=== PATIENT | female | born 1945 | race Caucasian/White ===

== ENCOUNTER → 2016-11-17 | Outpatient (CLI) | payer MEDICARE ==
[~2016-11-17] MED LIST: ASPEC81 PO; BNC20 PO; CALC500C70 PO; CHOL100010 PO; CNT PO; CYAN100T PO; OCCUVITE PO; PRM/45 PO; SIMV20TA2 PO; TRETINOIN 0.025% TOP; krill oil PO
[2016-11-17 10:30] LABS: ESTIMATED AVERAGE GLUCOSE 126 mg/dl; HA1C FLAG Normal (Normal)
[2016-11-17 12:50] LABS: CALCIUM 9.1 mg/dl (8.5-10.1)
[2016-11-17 12:51] LABS: ALT/SGPT 24 U/L (12-78); BLOOD UREA NITROGEN 15 mg/dl (7-18); BUN/CREATININE RATIO 17.1 (10-20); CARBON DIOXIDE 27 mmol/L (21-32); CHLORIDE 106 mmol/L (98-107); CREATININE 0.87 mg/dl (0.60-1.20); GLUCOSE 104 mg/dl (70-99); SODIUM 142 mmol/L (136-145)
[2016-11-17 12:54] LABS: ALKALINE PHOSPHATASE 70 U/L (45-117); AST/SGOT 24 U/L (15-37)
--- NOTE | 2016-11-21 11:48 | CODING QUERY MEDICAL NECESSITY ---
SUPPORTING DIAGNOSIS NEEDED A supporting diagnosis is required for the test/procedure performed on this patient in order for us to be reimbursed by the patient's insurance. Please provide a supporting diagnosis for the following test/procedure listed below next to the test name along with your signature. *If there is no additional diagnosis for this patient that would support the following test/procedure please document that below next to the test/procedure. Test(s)/Procedure(s) that require a supporting diagnosis: * HEMOGLOBIN A1C DIAGNOSIS: Provider Signature: Date: Thank you Diane [facility] Information Management Once completed, please kindly fax back to [phone] For questions please call [phone]
== END | disposition home or self-care (01) ==
LOC: C.LAB1850 08:49
PROVIDERS: ATTEND Family Medicine
DX: I10 Essential (primary) hypertension (principal); R73.03 Prediabetes

== ENCOUNTER → 2017-01-01 | Outpatient (CLI) | payer MEDICARE | END | disposition home or self-care (01) | LOC: C.LABSPEC 08:45 | PROVIDERS: ATTEND Obstetrics & Gynecology | DX: N89.8 Other specified noninflammatory disorders of vagina (principal) ==

== ENCOUNTER → 2017-03-14 | Outpatient (CLI) | payer MEDICARE ==
--- NOTE | 2017-03-14 13:41 | MAMMOGRAPHY REPORT ---
BILATERAL DIGITAL SCREENING MAMMOGRAM TOMOSYNTHESIS WITH CAD: 03/14/2017 CLINICAL HISTORY: Routine screening. TECHNIQUE: Breast tomosynthesis in addition to standard 2D mammography was performed. Current study was also evaluated with a Computer Aided Detection (CAD) system. COMPARISON: Comparison is made to exams dated: 03/13/2016 mammogram, 03/10/2015 mammogram, 01/14/2014 mammogram, 12/19/2012 mammogram, 12/19/2011 mammogram, and 12/15/2010 mammogram - [facility]. BREAST COMPOSITION: The tissue of both breasts is heterogeneously dense, which may obscure small mas ses. FINDINGS: No suspicious masses, calcifications, or areas of architectural distortion are noted in ei ther breast. There has been no significant interval change compared to prior exams. Scattered bilater al benign-appearing calcifications are not significantly changed. A biopsy marker clip is again note d in the left upper outer quadrant. IMPRESSION: ACR BI-RADS CATEGORY 2: BENIGN There is no mammographic evidence of malignancy. A 1 year screening mammogram is recommended. The pa tient will receive written notification of the results. Approximately 10% of breast cancers are not detected with mammography. A negative mammographic report should not delay biopsy if a clinically suggestive mass is present. Karina Hendricks M.D. ah/:03/14/2017 12:05:30 Corking Machine Operator: Linda ROSARIO)(M), [facility] letter sent: Normal 1/2 BI-RADS Code: ACR BI-RADS Category 2: Benign
== END | disposition home or self-care (01) ==
LOC: C.MAMM 11:04
PROVIDERS: ATTEND Obstetrics & Gynecology
DX: Z12.31 Encounter for screening mammogram for malignant neoplasm of breast (principal)

== ENCOUNTER → 2017-05-21 | Outpatient (CLI) | payer MEDICARE ==
[2017-05-21 10:01] LABS: ALB/GLOB RATIO 1.1 (0.9-2); ALKALINE PHOSPHATASE 74 U/L (45-117); ALT/SGPT 18 U/L (12-78); AST/SGOT 23 U/L (15-37); BLOOD UREA NITROGEN 19 mg/dl (7-18); BUN/CREATININE RATIO 28.9 (10-20); CALCIUM 9.1 mg/dl (8.5-10.1); CARBON DIOXIDE 26 mmol/L (21-32); CHLORIDE 104 mmol/L (98-107); CREATININE 0.67 mg/dl (0.60-1.20); GLUCOSE 101 mg/dl (70-99); POTASSIUM 4.1 mmol/L (3.5-5.1); SODIUM 137 mmol/L (136-145)
[2017-05-21 10:30] LABS: ESTIMATED AVERAGE GLUCOSE 120 mg/dl; HA1C FLAG Normal (Normal)
== END | disposition home or self-care (01) ==
LOC: C.LAB1850 08:29
PROVIDERS: ATTEND Physician Assistant Medical
DX: Z00.00 Encounter for general adult medical examination without abnormal findings (principal); E78.5 Hyperlipidemia, unspecified; R73.03 Prediabetes

== ENCOUNTER → 2017-06-18 | Outpatient (CLI) | payer MEDICARE | END | disposition home or self-care (01) | LOC: C.MAMM 12:59 | PROVIDERS: ATTEND Physician Assistant Medical | DX: M85.80 Other specified disorders of bone density and structure, unspecified site (principal); M85.839 Other specified disorders of bone density and structure, unspecified forearm ==

== ENCOUNTER 2019-11-09 15:53 | Inpatient (IN) ==
[2019-11-09] MEDS ORDERED: SODIUM CHLORIDE 0.9% 1000ML 1,000 ML IV ONE (16:10)
--- NOTE | 2019-11-09 16:12 | Emergency Department Note ---
Impression & Plan Syncope, Lyme disease, Fever ED Provider Note NAME: KEI KHAN AGE: 74 SEX: F : 1945 ARRIVES VIA: Walk-In INFORMANT: Patient, nurse ED PROVIDER(S): Andrew Panda DO CHIEF COMPLAINT: Syncope and fever HPI: Patient is a 74-year-old female who presents the ER following a tick bite which occurred this past Sunday. She pulled a small tick off her left breast. The past 48 hours she has been having fevers as high as 102. She is been taking aspirin for this. She admits to myalgias and arthralgias. She has a cough which she notes is not really productive. She also has a little bit of a sore throat and runny nose. She denies any sick contacts. No exposure to anyone with coronavirus. No chest pain belly pain or vomiting. She admits to some nausea. She does not remember passing out here in the ER. ROS: See above HPI for pertinent positives & negatives. A total of 10 systems reviewed and were otherwise negative. PAST MEDICAL HISTORY:See Below PAST SURGICAL HISTORY:See Below FAMILY HISTORY:See Below SOCIAL HISTORY:See Below HOME MEDICATIONS:See Below ALLERGIES:See Below VITALS:See Below PHYSICAL EXAMINATION: GENERAL: Sitting up in bed, alert, well appearing, well nourished, no distress, non-toxic EYE EXAM: normal conjunctiva. PERRL and EOM's grossly intact. OROPHARYNX: no exudate, no erythema, lips, buccal mucosa, and tongue normal and mucous membranes are moist NECK: supple, no nuchal rigidity, no adenopathy, non-tender LUNGS: Clear to auscultation. Normal chest wall mechanics HEART: no murmurs, S1 normal and S2 normal ABDOMEN: abdomen soft, non-tender, normo-active bowel sounds, no masses, no rebound or guarding. BACK: Back is symmetrical on inspection and there is no deformity, no midline tenderness, no CVA tenderness. SKIN: Small area of circular erythema around the left breast. UPPER EXTREMITIES: upper extremities are grossly normal. LOWER EXTREMITIES: No pitting edema. NEURO EXAM: Normal sensorium, cranial nerves II-XII intact, normal speech, no weakness of arms, no weakness of legs. No drift. Finger to nose intact. Gross sensation intact. MEDICAL DECISION MAKING: Patient is a 74-year-old female who presents the ER for a tick bite. She notes she has been having fevers for the past 48 hours. While in triage she became completely unresponsive. She was brought back to a 1. I was called to the room. IV was established blood work was obtained. Labs show a mild leukopenia. No significant anemia. INR was unremarkable. BMP with a mild hyponatremia. Lactate was normal. Patient was febrile. Magnesium slightly low. AST slightly elevated. Troponin was negative. Lyme IgM was equivocal. Did question if this was anaplasmosis. Chest x-ray showed bilateral infiltrates. Patient was given IV Rocephin and oral doxycycline to cover for Lyme, possible anaplasmosis and pneumonia. She was COVID negative. She was given IV fluids, Tylenol and Zofran. She was updated bedside. Discussed with the hospitalist and admitted for further work-up. CT of the head was not performed as she was completely neurologically intact. This not consistent with CVA. Triage Nursing notes reviewed. Prior medical records reviewed Vital Signs: reviewed and remarkable for febrile tachycardic Differential diagnosis: Differential diagnosis includes etiologies such as sepsis, UTI, pneumonia, metabolic, electrolyte abnormalities, cardiac sources, intracerebral event, toxicologic, neurological, as well as others were entertained. ER treatment provided: See below Diagnostics interpreted by me: ECG: Sinus bradycardia rate of 58 Normal axis No PVCs Normal QTC Poor baseline in the lateral leads Cardiac Monitoring: An order was placed for continuous cardiac monitoring. The monitor shows a rate of 61 with sinus rhythm. Laboratory studies: As stated above and show below. Imaging studies: Portable AP upright 1 view of the chest shows consolidations in the left lower right upper Consultation(s): Discussed with not any hospitalist. ED COURSE: Procedures: none Critical Care: None Past Med/Surg History Medical History Diverticulosis of colon (Inactive) Hematuria (Inactive) HLD (hyperlipidemia) HTN (hypertension) Vitamin D deficiency (Chronic) Weight loss (Chronic) Surgical History History of hysterectomy History of tooth extraction Family History Father Congestive heart failure COPD (chronic obstructive pulmonary disease) Hearing loss Mother Hemorrhagic stroke Hypertension Sister Epilepsy Diabetes Coronary heart disease Ovarian cancer Hypertension Carcinoma of tongue Breast cancer Brother Brain cancer Hypertension Multiple myeloma Neurofibromatosis Hearing loss Other Cancer Social History Preferred Language: [place] Island[place] Communication Ability: Effective Visual Impairment: Limited Hearing Ability: Normal Rehabilitation Technician Required: No Beliefs That Will Affect Care: None marital status: Current Living Situation: Spouse current occupational status: retired Feels Safe at Home: Yes Smoking Status: Never smoker Hx Alcohol Use: Yes Alcohol type: wine Alcohol Intake Frequency: Rarely Hx Substance Use: No Childhood Exposure to Second-Hand Smoke: No caffeine: Yes Dental Care, Regularly: Yes Physical Activity Frequency: Daily Seatbelt Use: always Sunscreen Use: Yes Allergies Allergies Allergy/AdvReac Type Severity Reaction Status Date / Time No Known Allergies Allergy Unverified 11/09/19 16:33 Home Meds Home Medications Medication Instructions Recorded Confirmed aspirin [Aspirin Low Dose] 81 mg PO DAILY 03/14/18 11/09/19 cholecalciferol (vitamin D3) 2,000 unit PO DAILY 03/14/18 11/09/19 cyanocobalamin (vitamin B-12) 500 mcg PO DAILY 03/14/18 11/09/19 [id number] 1 cap PO DAILY 03/14/18 11/09/19 [krill oil] Previous Rx's Medication Instructions Recorded losartan 50 mg tablet 50 mg PO DAILY #90 tab 03/21/19 Results & Data (ED) Vital Signs Vital Signs - 24 hr 11/09/19 15:57 11/09/19 16:07 11/09/19 16:15 Temperature 38.5 C H Temperature Source Oral Pulse Rate 98 H 73 71 Pulse Rate from SpO2 Sensor 73 71 Respiratory Rate 20 24 24 Blood Pressure 120/87 128/57 L Blood Pressure Mean 98 81 Pulse Oximetry 95 95 95 Oxygen Delivery Method Room Air Room Air Room Air Sepsis Recent Fever Within 48 Hours Yes Sepsis New/Unexplained Change in Mental Status No Sepsis Action Taken by Nursing No Action Required 11/09/19 16:20 11/09/19 16:30 11/09/19 16:45 Temperature Temperature Source Pulse Rate 74 76 Pulse Rate from SpO2 Sensor 73 Respiratory Rate 20 20 Blood Pressure 117/57 L Blood Pressure Mean 60 Pulse Oximetry 97 97 97 Oxygen Delivery Method Room Air Room Air Room Air Sepsis Recent Fever Within 48 Hours Sepsis New/Unexplained Change in Mental Status Sepsis Action Taken by Nursing 11/09/19 17:02 11/09/19 17:15 11/09/19 17:30 Temperature 37.7 C H Temperature Source Pulse Rate 74 71 67 Pulse Rate from SpO2 Sensor 75 72 67 Respiratory Rate 20 20 20 Blood Pressure 121/56 L 105/48 L Blood Pressure Mean 88 54 Pulse Oximetry 97 97 95 Oxygen Delivery Method Room Air Room Air Room Air Sepsis Recent Fever Within 48 Hours Sepsis New/Unexplained Change in Mental Status Sepsis Action Taken by Nursing 11/09/19 18:00 11/09/19 18:30 Temperature Temperature Source Pulse Rate 75 71 Pulse Rate from SpO2 Sensor 74 70 Respiratory Rate 20 20 Blood Pressure 111/59 L 106/50 L Blood Pressure Mean 77 67 Pulse Oximetry 99 99 Oxygen Delivery Method Room Air Room Air Sepsis Recent Fever Within 48 Hours Sepsis New/Unexplained Change in Mental Status Sepsis Action Taken by Nursing Laboratory Data Result diagrams: 11/09/19 16:17 11/09/19 16:17 Lab Results 11/09/19 11/09/19 11/09/19 Range/Units 16:17 16:17 16:17 WBC 4.43 L (4.8-10.8) K/uL RBC 4.23 (4.2-5.4) M/uL Hgb 12.7 (12.0-16.0) g/dL Hct 38.8 (37-47) % MCV 91.7 (80-100) fL MCH 30.0 (25-34) pg MCHC 32.7 (32-36) g/dL RDW Std Deviation 46.9 H (36.4-46.3) fL RDW Coeff of Asmita 13.9 (11.5-14.5) % Plt Count 128 L (130-400) K/uL MPV 9.8 (7.4-10.4) fL Immature Gran % (Auto) 0.0 % Neut % (Auto) 72.0 % Lymph % (Auto) 14.7 % [place] % (Auto) 13.1 % Eos % (Auto) 0.0 % Baso % (Auto) 0.2 % Immature Gran # (Auto) 0.00 (0.00-0.02) K/uL Neut # (Auto) 3.19 (1.4-6.5) K/uL Lymph # (Auto) 0.65 L (1.2-3.4) K/uL [place] # (Auto) 0.58 (0.11-0.59) K/uL Eos # (Auto) 0.00 (0-0.5) K/uL Baso # (Auto) 0.01 (0-0.2) K/uL PT 11.4 (9.0-12.0) Seconds INR 1.1 (0.9-1.1) APTT 27.2 (21.0-31.0) Seconds PTT Ratio 1.0 Sodium 134 L (136-145) mmol/L Potassium 3.5 (3.5-5.1) mmol/L Chloride 102 (98-107) mmol/L Carbon Dioxide 26 (21-32) mmol/L Anion Gap 6.0 (3-11) BUN 14 (7-18) mg/dl Creatinine 0.74 (0.6-1.2) mg/dl Est Cr Clr Drug Dosing 50.9 ml/min Est GFR ( Amer) 92.5 Est GFR (Non-Af Amer) 79.8 BUN/Creatinine Ratio 19.6 (10-20) Glucose 141 H (70-99) mg/dl Lactate (0.4-2.0) mmol/L Calcium 8.6 (8.5-10.1) mg/dl Magnesium 1.7 L (1.8-2.4) mg/dl Total Bilirubin 0.6 (0.2-1) mg/dl AST 55 H (15-37) U/L ALT 34 (12-78) U/L Alkaline Phosphatase 77 (45-117) U/L Troponin I < 0.015 (0-0.045) ng/ml Total Protein 6.9 (6.4-8.2) gm/dl Albumin 3.6 (3.4-5.0) gm/dl Globulin 3.3 (2.5-4.0) gm/dl Albumin/Globulin Ratio 1.1 (0.9-2) Lyme Disease IgG Ab (Negative) Lyme Disease IgM Ab (Negative) COVID-19 PCR (Negative) Influenza Type A (PCR) (Neg) Influenza Type B (PCR) (Neg) 06/07/20 06/07/20 06/07/20 Range/Units 16:17 16:17 16:19 WBC (4.8-10.8) K/uL RBC (4.2-5.4) M/uL Hgb (12.0-16.0) g/dL Hct (37-47) % MCV (80-100) fL MCH (25-34) pg MCHC (32-36) g/dL RDW Std Deviation (36.4-46.3) fL RDW Coeff of Asmita (11.5-14.5) % Plt Count (130-400) K/uL MPV (7.4-10.4) fL Immature Gran % (Auto) % Neut % (Auto) % Lymph % (Auto) % [place] % (Auto) % Eos % (Auto) % Baso % (Auto) % Immature Gran # (Auto) (0.00-0.02) K/uL Neut # (Auto) (1.4-6.5) K/uL Lymph # (Auto) (1.2-3.4) K/uL [place] # (Auto) (0.11-0.59) K/uL Eos # (Auto) (0-0.5) K/uL Baso # (Auto) (0-0.2) K/uL PT (9.0-12.0) Seconds INR (0.9-1.1) APTT (21.0-31.0) Seconds PTT Ratio Sodium (136-145) mmol/L Potassium (3.5-5.1) mmol/L Chloride (98-107) mmol/L Carbon Dioxide (21-32) mmol/L Anion Gap (3-11) BUN (7-18) mg/dl Creatinine (0.6-1.2) mg/dl Est Cr Clr Drug Dosing ml/min Est GFR ( Amer) Est GFR (Non-Af Amer) BUN/Creatinine Ratio (10-20) Glucose (70-99) mg/dl Lactate 1.0 (0.4-2.0) mmol/L Calcium (8.5-10.1) mg/dl Magnesium (1.8-2.4) mg/dl Total Bilirubin (0.2-1) mg/dl AST (15-37) U/L ALT (12-78) U/L Alkaline Phosphatase (45-117) U/L Troponin I (0-0.045) ng/ml Total Protein (6.4-8.2) gm/dl Albumin (3.4-5.0) gm/dl Globulin (2.5-4.0) gm/dl Albumin/Globulin Ratio (0.9-2) Lyme Disease IgG Ab Negative (Negative) Lyme Disease IgM Ab Equivocal A (Negative) COVID-19 PCR (Negative) Influenza Type A (PCR) Neg for Influ A (Neg) Influenza Type B (PCR) Neg for Influ B (Neg) 11/09/19 Range/Units 16:19 WBC (4.8-10.8) K/uL RBC (4.2-5.4) M/uL Hgb (12.0-16.0) g/dL Hct (37-47) % MCV (80-100) fL MCH (25-34) pg MCHC (32-36) g/dL RDW Std Deviation (36.4-46.3) fL RDW Coeff of Asmita (11.5-14.5) % Plt Count (130-400) K/uL MPV (7.4-10.4) fL Immature Gran % (Auto) % Neut % (Auto) % Lymph % (Auto) % [place] % (Auto) % Eos % (Auto) % Baso % (Auto) % Immature Gran # (Auto) (0.00-0.02) K/uL Neut # (Auto) (1.4-6.5) K/uL Lymph # (Auto) (1.2-3.4) K/uL [place] # (Auto) (0.11-0.59) K/uL Eos # (Auto) (0-0.5) K/uL Baso # (Auto) (0-0.2) K/uL PT (9.0-12.0) Seconds INR (0.9-1.1) APTT (21.0-31.0) Seconds PTT Ratio Sodium (136-145) mmol/L Potassium (3.5-5.1) mmol/L Chloride (98-107) mmol/L Carbon Dioxide (21-32) mmol/L Anion Gap (3-11) BUN (7-18) mg/dl Creatinine (0.6-1.2) mg/dl Est Cr Clr Drug Dosing ml/min Est GFR ( Amer) Est GFR (Non-Af Amer) BUN/Creatinine Ratio (10-20) Glucose (70-99) mg/dl Lactate (0.4-2.0) mmol/L Calcium (8.5-10.1) mg/dl Magnesium (1.8-2.4) mg/dl Total Bilirubin (0.2-1) mg/dl AST (15-37) U/L ALT (12-78) U/L Alkaline Phosphatase (45-117) U/L Troponin I (0-0.045) ng/ml Total Protein (6.4-8.2) gm/dl Albumin (3.4-5.0) gm/dl Globulin (2.5-4.0) gm/dl Albumin/Globulin Ratio (0.9-2) Lyme Disease IgG Ab (Negative) Lyme Disease IgM Ab (Negative) COVID-19 PCR NEGATIVE (Negative) Influenza Type A (PCR) (Neg) Influenza Type B (PCR) (Neg) Administered Medications Enoxaparin Sodium (Lovenox) 40 mg SQ Q24H SUSY Stop: 12/09/19 20:59 Last Admin: 11/09/19 21:00 Dose: 40 mg Documented by: [id number] Sodium Chloride (Nss 1000ml) 1,000 mls @ 125 mls/hr IV .Q8H SUSY Stop: 12/09/19 20:25 Last Admin: 11/09/19 20:57 Dose: 125 mls/hr Documented by: [id number] Discontinued Medications Acetaminophen (Tylenol) 650 mg PO NOW STA Stop: 11/09/19 16:36 Last Admin: 11/09/19 16:45 Dose: 650 mg Documented by: [id number] Doxycycline Hyclate (Vibramycin) 100 mg PO NOW STA Stop: 11/09/19 16:36 Last Admin: 11/09/19 16:45 Dose: 100 mg Documented by: [id number] Sodium Chloride (Nss 1000ml) 1,000 mls @ 999 mls/hr IV .Q1H1M ONE Stop: 11/09/19 17:10 Last Infusion: 11/09/19 17:21 Dose: 0 mls/hr Documented by: [id number] Admin: 11/09/19 16:21 Dose: 999 mls/hr Documented by: [id number] Ceftriaxone Sodium (Rocephin) 1,000 mg in 50 mls @ 100 mls/hr IV NOW STA Stop: 11/09/19 17:04 Last Infusion: 11/09/19 17:21 Dose: 0 mls/hr Documented by: [id number] Admin: 11/09/19 16:45 Dose: 100 mls/hr Documented by: [id number] Magnesium Sulfate/Dextrose (Magnesium Sulfate / D5w) 1 gm in 100 mls @ 100 mls/hr IV ONE ONE Stop: 11/09/19 19:10 Last Infusion: 11/09/19 19:54 Dose: 0 mls/hr Documented by: [id number] Admin: 11/09/19 18:54 Dose: 100 mls/hr Documented by: [id number] Ioversol (Optiray 320 100ml) 94 ml IV ONCE PRN PRN Reason: Interaction Checking Stop: 11/13/19 19:57 Last Admin: 11/09/19 19:59 Dose: 94 ml Documented by: [id number] Discharge Plan Visit Data *Final* Discharge Date/Time: 11/09/19 19:34 Chief Complaint: Bite Stated Complaint: TICK BITE ED Provider: Andrew Panda Discharge Problem: Syncope, Lyme disease, Fever Patient Disposition: Admitted As Inpatient Discharge Instructions Interventions: ED Discharge Assessment Last Done: 11/09/19 19:34 Discharge Problem: Syncope Qualifiers: Syncope type: unspecified Qualified Code(s): R55 - Syncope and collapse Fever Qualifiers: Fever type: unspecified Qualified Code(s): R50.9 - Fever, unspecified
[2019-11-09 16:31] LABS: Basophils # (auto) 0.01 K/uL (0-0.2); Basophils % (auto) 0.2 %; Hematocrit (blood only) 38.8 % (37-47); Hemoglobin 12.7 g/dL (12.0-16.0); Lymphocytes # (auto) 0.65 K/uL (1.2-3.4); Lymphocytes % (auto) 14.7 %; Mean Corpuscular Hgb Conc 32.7 g/dL (32-36); Mean Corpuscular Volume 91.7 fL (80-100); Mean Platelet Volume 9.8 fL (7.4-10.4); Monocytes # (auto) 0.58 K/uL (0.11-0.59); Monocytes % (auto) 13.1 %; Neutrophils # (auto) 3.19 K/uL (1.4-6.5); Platelet Count 128 K/uL (130-400); RDW Coefficient of Variation 13.9 % (11.5-14.5); RDW Standard Deviation 46.9 fL (36.4-46.3); Red Blood Count 4.23 M/uL (4.2-5.4); White Blood Count 4.43 K/uL (4.8-10.8)
[2019-11-09] MEDS ORDERED: ACETAMINOPHEN 325 MG TAB PO STA (16:35)
[2019-11-09] MEDS ORDERED: DOXYCYCLINE HYCLATE 100 MG CAP PO STA (16:35)
[2019-11-09] MEDS ORDERED: cefTRIAXone SODIUM 1,000 MG/50 ML BAG IV STA (16:35)
[2019-11-09 16:59] LABS: INR 1.1 (0.9-1.1); Partial Thromboplastin Time 27.2 Seconds (21.0-31.0); Prothrombin Time 11.4 Seconds (9.0-12.0)
[2019-11-09 17:02] LABS: Alanine Aminotransferase 34 U/L (12-78); Albumin Level 3.6 gm/dl (3.4-5.0); Aspartate Aminotransferase 55 U/L (15-37); BUN Creatinine Ratio 19.6 (10-20); Blood Urea Nitrogen 14 mg/dl (7-18); Calcium 8.6 mg/dl (8.5-10.1); Carbon Dioxide 26 mmol/L (21-32); Chloride 102 mmol/L (98-107); Creatinine Clr Calc Pharmacy 50.9 ml/min; Est GFR (African American) 92.5; Est GFR (Non-African American) 79.8; Glucose 141 mg/dl (70-99); Magnesium 1.7 mg/dl (1.8-2.4); Potassium 3.5 mmol/L (3.5-5.1); Sodium 134 mmol/L (136-145)
--- NOTE | 2019-11-09 17:04 | XRay Report ---
XR chest 1V portable CLINICAL HISTORY: SEPSIS dyspnea COMPARISON STUDY: 11/04/2019 FINDINGS: Minimal parenchymal infiltrate right apex. This is unchanged from the prior study. Interstitial prominence left base. Lungs otherwise appear clear. IMPRESSION: Infiltrative/atelectatic changes right apex and left base. ACT 112: Negative or not required by law. The above report was generated using voice recognition software. It may contain grammatical, syntax or spelling errors. Electronically signed by: Javier Carty M.D. 11/09/2019 5:02 PM
[2019-11-09 17:07] LABS: Albumin Globulin Ratio 1.1 (0.9-2); Alkaline Phosphatase 77 U/L (45-117); Bilirubin,Total 0.6 mg/dl (0.2-1); Globulin 3.3 gm/dl (2.5-4.0); Total Protein 6.9 gm/dl (6.4-8.2); Troponin I < 0.015 ng/ml (0-0.045)
[2019-11-09 17:12] LABS: Influenza A virus by PCR Neg for Influ A (Neg); Influenza B virus by PCR Neg for Influ B (Neg)
[2019-11-09 17:23] LABS: Lyme Ab IgG w/WB Rflx Negative (Negative)
[2019-11-09 17:28] LABS: Lyme Ab IgM w/WB Rflx Equivocal (Negative)
[2019-11-09] MEDS ORDERED: MAGNESIUM SULFATE / D5W 1 GM/100 ML BAG IV ONE (18:11)
--- NOTE | 2019-11-09 18:47 | History & Physical Report ---
Date of Service November 09, 2019 Assessment & Plan (1) Lyme disease: Patient presented with fever, known tick bite, bull's-eye rash on the left breast, and equivocal Lyme IgM titer Suspect also has coinfection with anaplasmosis given elevated LFTs and thrombocytopenia, along with dry cough and sore throat. -Was given p.o. doxycycline and IV Rocephin in the ER -Continue doxycycline 100 mg IV every 12 for now as p.o. doxy made her nauseated -Supportive care with Tylenol, IV fluids -Follow-up Western blot, but given that she has a bull's-eye rash, would definitely treat for 4 weeks with p.o. doxycycline after discharge (2) Fever: Secondary to anaplasmosis and likely Lyme disease as above -Tylenol as needed (3) Syncope: Likely secondary to poor p.o. 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 -Continue doxycycline as above -Recommend at least 10 days of doxycycline for this, but getting 4 weeks anyway for Lyme disease as above -Anaplasma DNA PCR sent off and should be followed up within the next week (5) Thrombocytopenia: Mild at 128, likely secondary to anaplasmosis as above -Follow CBC in the morning (6) Elevated AST (SGOT): As above follow LFTs in AM (7) Hypomagnesemia: Mag mildly low at 1.7 Replace with 1 GM IV Mag -Follow magnesium level in the morning (8) Hyperlipidemia: No longer taking medication for this, wants to discuss with her PCP (9) Hypertension: Blood pressures here are stable -Continue home losartan (10) Vitamin D deficiency: Continue home vitamin D supplement (11) DVT prophylaxis: Lovenox SQ Disposition-admit to medical floor with telemetry for syncope, febrile illness, Lyme/anaplasmosis as above History of Present Illness Chief Complaint: Tick bite, passed out, fever Primary Care Provider: Elvis Garcia MD This patient is a 74-year-old female with a history of HTN, hyperlipidemia and on medications, prediabetes, and UTI, who presents to the ER after having a tick bite on her left breast this past Sunday. She is been having fevers to 102 ever since and low appetite. She is also had a mild headache all over, denies neck pain, neck stiffness, or photophobia. She has a rash on the left breast. She is also had a mild cough for the last few days and had a chest x-ray on 11/03 with her PCP which did show a right suprahilar possible infiltrate for which she needed a chest CT ordered for follow-up. In the triage here, she was found to be febrile and while triage nurse was asking her questions, she was witnessed to have a brief syncopal episode with twitching. The patient remembers everything surrounding passing out, and thinks she is just very dehydrated and did not eat much today. She has never passed out before. She denies any chest pain or shortness of breath, but reports she was feeling a little bit lightheaded at that time. Denies any abdominal pain. She is little bit nauseated now after receiving a dose of oral doxycycline. She is normally very active and considers herself a very healthy person. In the ER, she was found to be negative for COVID, negative for flu. Her chest x-ray again showed a right apex infiltrate. Her lactate was normal. Her AST was mildly elevated at 55, and her platelets were mildly low at 128, her WBC count was mildly low at 4. Her Lyme IgM was equivocal and the Western blot was sent. In the ER, she was given a dose of IV ceftriaxone, p.o. doxycycline, a liter of IV fluids, and a dose of Tylenol. She will be admitted for febrile illness with syncope, likely with Lyme disease and possibly also with anaplasmosis. Allergies Allergy/AdvReac Type Severity Reaction Status Date / Time No Known Allergies Allergy Unverified 11/09/19 16:33 Home Medications Home Medications Medication Instructions Recorded Confirmed Type aspirin [Aspirin Low Dose] 81 mg PO DAILY 03/14/18 11/09/19 History cholecalciferol (vitamin D3) 2,000 unit PO DAILY 03/14/18 11/09/19 History cyanocobalamin (vitamin B-12) 500 mcg PO DAILY 03/14/18 11/09/19 History teieb-gp-3-hrd-vpu-rkuqtep-ast 1 cap PO DAILY 03/14/18 11/09/19 History [krill oil] losartan 50 mg tablet 50 mg PO DAILY #90 tab 03/21/19 11/09/19 Rx Past Med/Surg History Medical History Diverticulosis of colon (Inactive) Hematuria (Inactive) HLD (hyperlipidemia) HTN (hypertension) Vitamin D deficiency (Chronic) Weight loss (Chronic) Surgical History History of hysterectomy History of tooth extraction Family History Father Congestive heart failure COPD (chronic obstructive pulmonary disease) Hearing loss Mother Hemorrhagic stroke Hypertension Sister Epilepsy Diabetes Coronary heart disease Ovarian cancer Hypertension Carcinoma of tongue Breast cancer Brother Brain cancer Hypertension Multiple myeloma Neurofibromatosis Hearing loss Other Cancer Social History Preferred Language: Upper Sorbian Communication Ability: Effective Visual Impairment: Limited Hearing Ability: Normal Credit Control Officer Required: No marital status: Current Living Situation: Spouse current occupational status: retired Feels Safe at Home: Yes Smoking Status: Never smoker Hx Alcohol Use: Yes Alcohol type: wine Alcohol Intake Frequency: Rarely Hx Substance Use: No Childhood Exposure to Second-Hand Smoke: No caffeine: Yes Dental Care, Regularly: Yes Physical Activity Frequency: Daily Seatbelt Use: always Sunscreen Use: Yes Review of Systems Review of Systems: All systems reviewed & are unremarkable except as noted in HPI & below Also has been having a little bit of runny nose, sore throat, dry cough Her PCP also ordered the chest x-ray for a weight loss of 15 pounds in the last year that was not exactly intentional. Physical Exam Constitutional: WD/WN, vitals as above Eyes: PERRL, conjunctivae normal, anicteric sclerae ENMT: external ear and nose normal, oropharynx normal Neck: trachea midline, no thyromegaly Respiratory: normal respiratory effort Auscultation: + crackles (At the right midlung, otherwise clear); no rhonchi and no wheezes Cardiovascular: RRR, no murmur, no edema Chest (Breasts): Chest: normal inspection of chest Gastrointestinal (Abdomen): normal bowel sounds, soft, nontender, no hepatosplenomegaly Musculoskeletal: Extremities: extremities normal to inspection; no cyanosis and no clubbing Skin: + lesion (Classic bull's-eye appearing lesion on the left lateral breast) Neurologic: moves all extremities and awake; no focal motor deficits Psychiatric: A+Ox3, euthymic affect Lymphatic: no lymphedema Results & Data Results & Data ([facility]) Vital Signs (Past 12 Hours) Vital Signs Temp Pulse Resp BP Pulse Ox 11/09/19 17:30 37.7 C H 67 20 105/48 L 95 11/09/19 17:15 71 20 97 11/09/19 17:02 74 20 121/56 L 97 11/09/19 16:45 76 20 97 11/09/19 16:30 74 20 117/57 L 97 11/09/19 16:20 97 11/09/19 16:15 71 24 95 11/09/19 16:07 73 24 128/57 L 95 11/09/19 15:57 38.5 C H 98 H 20 120/87 95 Laboratory Results 11/09/19 11/09/19 11/09/19 Range/Units 16:19 16:19 16:17 WBC (4.8-10.8) K/uL RBC (4.2-5.4) M/uL Hgb (12.0-16.0) g/dL Hct (37-47) % MCV (80-100) fL MCH (25-34) pg MCHC (32-36) g/dL RDW Std Deviation (36.4-46.3) fL RDW Coeff of Asmita (11.5-14.5) % Plt Count (130-400) K/uL MPV (7.4-10.4) fL Immature Gran % (Auto) % Neut % (Auto) % Lymph % (Auto) % [place] % (Auto) % Eos % (Auto) % Baso % (Auto) % Immature Gran # (Auto) (0.00-0.02) K/uL Neut # (Auto) (1.4-6.5) K/uL Lymph # (Auto) (1.2-3.4) K/uL [place] # (Auto) (0.11-0.59) K/uL Eos # (Auto) (0-0.5) K/uL Baso # (Auto) (0-0.2) K/uL Peripher Smr Path Cons PT (9.0-12.0) Seconds INR (0.9-1.1) APTT (21.0-31.0) Seconds PTT Ratio Sodium (136-145) mmol/L Potassium (3.5-5.1) mmol/L Chloride (98-107) mmol/L Carbon Dioxide (21-32) mmol/L Anion Gap (3-11) BUN (7-18) mg/dl Creatinine (0.6-1.2) mg/dl Est Cr Clr Drug Dosing ml/min Est GFR ( Amer) Est GFR (Non-Af Amer) BUN/Creatinine Ratio (10-20) Glucose (70-99) mg/dl Lactate (0.4-2.0) mmol/L Calcium (8.5-10.1) mg/dl Magnesium (1.8-2.4) mg/dl Total Bilirubin (0.2-1) mg/dl AST (15-37) U/L ALT (12-78) U/L Alkaline Phosphatase (45-117) U/L Troponin I (0-0.045) ng/ml Total Protein (6.4-8.2) gm/dl Albumin (3.4-5.0) gm/dl Globulin (2.5-4.0) gm/dl Albumin/Globulin Ratio (0.9-2) A. phagocytophilum DNA Pending Lyme Disease IgG Ab (Negative) Lyme IgG (Western Blot) Lyme IgG 18 kDa Band Lyme IgG 23 kDa Band Lyme IgG 28 kDa Band Lyme IgG 30 kDa Band Lyme IgG 39 kDa Band Lyme IgG 41 kDa Band Lyme IgG 45 kDa Band Lyme IgG 58 kDa Band Lyme IgG 66 kDa Band Lyme IgG 93 kDa Band Lyme IgM Ab (WB) Lyme Disease IgM Ab (Negative) Lyme IgM 23 kDa Band Lyme IgM 39 kDa Band Lyme IgM 41 kDa Band COVID-19 PCR NEGATIVE (Negative) Influenza Type A (PCR) Neg for Influ A (Neg) Influenza Type B (PCR) Neg for Influ B (Neg) 11/09/19 11/09/19 11/09/19 Range/Units 16:17 16:17 16:17 WBC (4.8-10.8) K/uL RBC (4.2-5.4) M/uL Hgb (12.0-16.0) g/dL Hct (37-47) % MCV (80-100) fL MCH (25-34) pg MCHC (32-36) g/dL RDW Std Deviation (36.4-46.3) fL RDW Coeff of Asmita (11.5-14.5) % Plt Count (130-400) K/uL MPV (7.4-10.4) fL Immature Gran % (Auto) % Neut % (Auto) % Lymph % (Auto) % [place] % (Auto) % Eos % (Auto) % Baso % (Auto) % Immature Gran # (Auto) (0.00-0.02) K/uL Neut # (Auto) (1.4-6.5) K/uL Lymph # (Auto) (1.2-3.4) K/uL [place] # (Auto) (0.11-0.59) K/uL Eos # (Auto) (0-0.5) K/uL Baso # (Auto) (0-0.2) K/uL Peripher Smr Path Cons PT (9.0-12.0) Seconds INR (0.9-1.1) APTT (21.0-31.0) Seconds PTT Ratio Sodium (136-145) mmol/L Potassium (3.5-5.1) mmol/L Chloride (98-107) mmol/L Carbon Dioxide (21-32) mmol/L Anion Gap (3-11) BUN (7-18) mg/dl Creatinine (0.6-1.2) mg/dl Est Cr Clr Drug Dosing ml/min Est GFR ( Amer) Est GFR (Non-Af Amer) BUN/Creatinine Ratio (10-20) Glucose (70-99) mg/dl Lactate 1.0 (0.4-2.0) mmol/L Calcium (8.5-10.1) mg/dl Magnesium (1.8-2.4) mg/dl Total Bilirubin (0.2-1) mg/dl AST (15-37) U/L ALT (12-78) U/L Alkaline Phosphatase (45-117) U/L Troponin I (0-0.045) ng/ml Total Protein (6.4-8.2) gm/dl Albumin (3.4-5.0) gm/dl Globulin (2.5-4.0) gm/dl Albumin/Globulin Ratio (0.9-2) A. phagocytophilum DNA Lyme Disease IgG Ab Negative (Negative) Lyme IgG (Western Blot) Pending Lyme IgG 18 kDa Band Pending Lyme IgG 23 kDa Band Pending Lyme IgG 28 kDa Band Pending Lyme IgG 30 kDa Band Pending Lyme IgG 39 kDa Band Pending Lyme IgG 41 kDa Band Pending Lyme IgG 45 kDa Band Pending Lyme IgG 58 kDa Band Pending Lyme IgG 66 kDa Band Pending Lyme IgG 93 kDa Band Pending Lyme IgM Ab (WB) Pending Lyme Disease IgM Ab Equivocal A (Negative) Lyme IgM 23 kDa Band Pending Lyme IgM 39 kDa Band Pending Lyme IgM 41 kDa Band Pending COVID-19 PCR (Negative) Influenza Type A (PCR) (Neg) Influenza Type B (PCR) (Neg) 11/09/19 11/09/19 11/09/19 Range/Units 16:17 16:17 16:17 WBC 4.43 L (4.8-10.8) K/uL RBC 4.23 (4.2-5.4) M/uL Hgb 12.7 (12.0-16.0) g/dL Hct 38.8 (37-47) % MCV 91.7 (80-100) fL MCH 30.0 (25-34) pg MCHC 32.7 (32-36) g/dL RDW Std Deviation 46.9 H (36.4-46.3) fL RDW Coeff of Asmita 13.9 (11.5-14.5) % Plt Count 128 L (130-400) K/uL MPV 9.8 (7.4-10.4) fL Immature Gran % (Auto) 0.0 % Neut % (Auto) 72.0 % Lymph % (Auto) 14.7 % [place] % (Auto) 13.1 % Eos % (Auto) 0.0 % Baso % (Auto) 0.2 % Immature Gran # (Auto) 0.00 (0.00-0.02) K/uL Neut # (Auto) 3.19 (1.4-6.5) K/uL Lymph # (Auto) 0.65 L (1.2-3.4) K/uL [place] # (Auto) 0.58 (0.11-0.59) K/uL Eos # (Auto) 0.00 (0-0.5) K/uL Baso # (Auto) 0.01 (0-0.2) K/uL Peripher Smr Path Cons Pending PT 11.4 (9.0-12.0) Seconds INR 1.1 (0.9-1.1) APTT 27.2 (21.0-31.0) Seconds PTT Ratio 1.0 Sodium 134 L (136-145) mmol/L Potassium 3.5 (3.5-5.1) mmol/L Chloride 102 (98-107) mmol/L Carbon Dioxide 26 (21-32) mmol/L Anion Gap 6.0 (3-11) BUN 14 (7-18) mg/dl Creatinine 0.74 (0.6-1.2) mg/dl Est Cr Clr Drug Dosing 50.9 ml/min Est GFR ( Amer) 92.5 Est GFR (Non-Af Amer) 79.8 BUN/Creatinine Ratio 19.6 (10-20) Glucose 141 H (70-99) mg/dl Lactate (0.4-2.0) mmol/L Calcium 8.6 (8.5-10.1) mg/dl Magnesium 1.7 L (1.8-2.4) mg/dl Total Bilirubin 0.6 (0.2-1) mg/dl AST 55 H (15-37) U/L ALT 34 (12-78) U/L Alkaline Phosphatase 77 (45-117) U/L Troponin I < 0.015 (0-0.045) ng/ml Total Protein 6.9 (6.4-8.2) gm/dl Albumin 3.6 (3.4-5.0) gm/dl Globulin 3.3 (2.5-4.0) gm/dl Albumin/Globulin Ratio 1.1 (0.9-2) A. phagocytophilum DNA Lyme Disease IgG Ab (Negative) Lyme IgG (Western Blot) Lyme IgG 18 kDa Band Lyme IgG 23 kDa Band Lyme IgG 28 kDa Band Lyme IgG 30 kDa Band Lyme IgG 39 kDa Band Lyme IgG 41 kDa Band Lyme IgG 45 kDa Band Lyme IgG 58 kDa Band Lyme IgG 66 kDa Band Lyme IgG 93 kDa Band Lyme IgM Ab (WB) Lyme Disease IgM Ab (Negative) Lyme IgM 23 kDa Band Lyme IgM 39 kDa Band Lyme IgM 41 kDa Band COVID-19 PCR (Negative) Influenza Type A (PCR) (Neg) Influenza Type B (PCR) (Neg) Diagnostic Findings Chest x-ray image personally reviewed by me and agree with the following report: XR chest 1V portable CLINICAL HISTORY: SEPSIS dyspnea COMPARISON STUDY: 11/04/2019 FINDINGS: Minimal parenchymal infiltrate right apex. This is unchanged from the prior study. Interstitial prominence left base. Lungs otherwise appear clear. IMPRESSION: Infiltrative/atelectatic changes right apex and left base. ECG Additional Comments: ECG with sinus bradycardia, nonspecific ST changes, but difficult to read in precordial leads due to patient movement Code Status & VTE Plan Code Status Full code VTE Prophylaxis Plan VTE Prophylaxis will be ordered: Yes PG Care Time/CCT Total # of Minutes Spent Total Time Spent with Patient: Total time spent is greater than 50% in coordination of care (as documented) at patient's floor/unit and/or counseling patient: Coding Level of Care Code 16250 Initial Inpt Care Lvl 3 Diagnoses Lyme disease A69.20 Fever R50.9 Syncope R55 Anaplasmosis A77.49 Thrombocytopenia D69.6 Elevated AST (SGOT) R74.0 Hypomagnesemia E83.42 Hyperlipidemia E78.5 Hyperlipidemia type: unspecified Hypertension I10 Hypertension type: essential hypertension Vitamin D deficiency E55.9 DVT prophylaxis Z29.9 (1) Hypertension Hypertension type: essential hypertension Qualified Code(s): I10 - Essential (primary) hypertension (2) Hyperlipidemia Hyperlipidemia type: unspecified Qualified Code(s): E78.5 - Hyperlipidemia, u nspecified
[2019-11-09] MEDS ORDERED: IOVERSOL 100ml IV PRN (19:58)
[2019-11-09] MEDS: SODIUM CHLORIDE 0.9% 1000ML 1,000 ML IV SCH (20:57)
[2019-11-09] MEDS: ENOXAPARIN INJ 40 MG/0.4 ML SYR SQ SCH (21:00)
[2019-11-09] MEDS ORDERED: COUGH DROP (SUGAR FREE) LOZ 24 LOZ/1 BOX BUCCAL PRN (23:24)
[2019-11-09] MEDS: ONDANSETRON INJ 2 MG/ML 2 ML VIAL IV PRN (23:39)
[2019-11-09] MEDS: ACETAMINOPHEN 325 MG TAB PO PRN (23:40)
[2019-11-10] MEDS: SODIUM CHLORIDE 0.9% 1000ML 1,000 ML IV SCH ×3 (04:13→20:14)
[2019-11-10] MEDS: DOXYCYCLINE HYCLATE 100 MG in DEXTROSE 5% 100 ML IV SCH ×2 (04:13→17:09)
[2019-11-10] MEDS: ACETAMINOPHEN 325 MG TAB PO PRN (04:57)
[2019-11-10 06:49] LABS: Basophils # (auto) 0.01 K/uL (0-0.2); Basophils % (auto) 0.2 %; Hematocrit (blood only) 33.4 % (37-47); Hemoglobin 11.2 g/dL (12.0-16.0); Immature Granulocytes # (auto) 0.01 K/uL (0.00-0.02); Immature Granulocytes % (auto) 0.2 %; Lymphocytes # (auto) 0.51 K/uL (1.2-3.4); Lymphocytes % (auto) 8.3 %; Mean Corpuscular Hemoglobin 30.7 pg (25-34); Mean Corpuscular Hgb Conc 33.5 g/dL (32-36); Mean Corpuscular Volume 91.5 fL (80-100); Mean Platelet Volume 9.7 fL (7.4-10.4); Monocytes # (auto) 0.62 K/uL (0.11-0.59); Monocytes % (auto) 10.1 %; Neutrophils % (auto) 81.2 %; Platelet Count 100 K/uL (130-400); RDW Coefficient of Variation 14.1 % (11.5-14.5); RDW Standard Deviation 47.7 fL (36.4-46.3); Red Blood Count 3.65 M/uL (4.2-5.4); White Blood Count 6.15 K/uL (4.8-10.8)
[2019-11-10 07:19] LABS: Albumin Level 2.6 gm/dl (3.4-5.0); BUN Creatinine Ratio 21.3 (10-20); Bilirubin Direct 0.2 mg/dl (0-0.2); Calcium 7.5 mg/dl (8.5-10.1); Creatinine Clr Calc Pharmacy 58.4 ml/min; Est GFR (African American) 100.9; Magnesium 1.8 mg/dl (1.8-2.4); Potassium 3.3 mmol/L (3.5-5.1)
[2019-11-10 07:32] LABS: Bilirubin,Total 0.5 mg/dl (0.2-1); Total Protein 5.7 gm/dl (6.4-8.2)
--- NOTE | 2019-11-10 08:13 | CT Scan Report ---
CT OF THE CHEST WITH IV CONTRAST CLINICAL HISTORY: Right suprahilar density,further characterize COMPARISON STUDY: Chest radiograph November 09, 2019. TECHNIQUE: Following IV administration of 94 mL of Optiray-320, helical axial images of the chest we re obtained. Sagittal and coronal reconstructions were viewed as well as maximal intensity projectio ns on an independent 3-D workstation. Automated exposure control was utilized for the study. A dose lowering technique was utilized adhering to the principles of ALARA. CT DOSE: 188.87 mGy.cm FINDINGS: No pathologically enlarged thoracic lymph nodes are noted. However, there are multiple enh ancing prominent left axillary lymph nodes that measure up to 6 mm in short axis diameter. The size o f the heart is normal. No pericardial effusion. Central airways are patent. There is biapical scarrin g with mild bronchiectasis. The largest opacity is a 1.9 cm right apical opacity on image 66 of 286. There is a 4 mm irregular nodular density within left upper lobe on image 106 as well as a 6 mm irreg ular right lower lobe density on image 141 and a 4 mm nodular opacity within the right middle lobe on image 184. No pneumothorax or pleural effusion is noted. No suspicious lesions within the bony fragm ents are noted. Heterogeneity of the liver is probably due to phase of enhancement or less likely rig ht heart dysfunction. IMPRESSION: 1. Biapical opacities which favor scarring, including a 1.9 cm right apical opacity. 2. A few additional smaller nodular opacities that measure up to 6 mm. These may reflect a mild infec tious process or old granulomatous process. A neoplastic etiology is considered less likely however a follow-up CT in 3 months is recommended to ensure stability/resolution. 3. Prominent but nonenlarged left axillary lymph nodes which may be reactive. These can be assessed o n follow-up chest CT. ACT 112: Negative or not required by law. Electronically signed by: Quan Robins M.D. 11/10/2019 8:12 AM
[2019-11-10] MEDS: CYANOCOBALAMIN 500 MCG TABLET (VITAMIN B-12) PO SCH (08:25)
[2019-11-10] MEDS: CHOLECALCIFEROL 1,000 UNITS 25 MCG TAB PO SCH (08:25)
[2019-11-10] MEDS: ASPIRIN 81 MG ECTAB PO SCH (08:25)
[2019-11-10] MEDS ORDERED: NON-FORMULARY MEDICATION (Krill-Om-3-Dha-Epa-Phospho-Ast [Krill Oil] 1 CAP) PO SCH (09:00)
[2019-11-10] MEDS ORDERED: LOSARTAN POTASSIUM 50 MG TAB PO SCH (09:00)
[2019-11-10] MEDS: POTASSIUM CHLORIDE 20 MEQ TABCR PO SCH ×2 (09:47→20:10)
--- NOTE | 2019-11-10 14:25 | XCELERA ---
[id number]
[2019-11-10] MEDS: ONDANSETRON INJ 2 MG/ML 2 ML VIAL IV PRN (16:28)
--- NOTE | 2019-11-10 16:43 | Hospitalist Progress Note ---
Date of Service November 10, 2019 Assessment & Plan (1) Lyme disease: Suspected early Lyme's given recent tick bite left upper chest and classic erythema migrans rash. Agree with Dr Wang that coinfection is possible with anaplasmosis given elevated LFTs and thrombocytopenia, Western blot for Lyme's and Anaplasmosis DNA sent. Cont doxycycline BID. Cont IVF and supportive care. 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 see above (5) Thrombocytopenia: 2nd to anaplasmosis or erhlichiosis repeat CBC am (6) Elevated AST (SGOT): likely 2nd to tick-borne illness (anaplasmosis) COVID-19 test negative viral process (EBV, CMV, etc) all possible but less likely repeat LFTs am (7) Hypomagnesemia: resolved (8) Hyperlipidemia: No longer taking medication for this, wants to discuss with her PCP (9) Hypertension: systolic BPs are low HOLD ARB (10) Vitamin D deficiency: Continue home vitamin D supplement (11) DVT prophylaxis: Lovenox SQ hold off on discharge due to recent syncope and persistently low-normal BPs hopefully can d/c home tomorrow Admission and Anticipated Discharge Date Admission Date: November 09, 2019 Subjective feeling better today than yesterday. did have fever and chills in middle of night. tired but no body aches. rash on left breast remains. denies abd pain, nausea, emesis. mild cough but no dyspnea. appetite fair. tele normal overnight. Review of Systems Constitutional: + fever Respiratory: no dyspnea and no sputum production Cardiovascular: no chest pain Gastrointestinal: no abdominal pain, no nausea and no vomiting Physical Exam Constitutional: no acute distress and no altered mental status ENMT: external ear and nose normal, oropharynx normal Respiratory: normal respiratory effort, lungs clear to auscultation Cardiovascular: Rate/Rhythm: regular rate and regular rhythm Heart Sounds: normal S1 and normal S2; no murmur Vessels: posterior tibial pulses present and dorsalis pedis pulses present; no JVD Extremities: no edema Gastrointestinal (Abdomen): Inspection/Auscultation: normal bowel sounds; abdomen not distended Percussion/Palpation: abdomen soft and + splenomegaly (tip palpable ); abdomen nontender and no hepatomegaly Skin: this portion of exam was chaperoned by nursing staff; classic erythema migrans rash of left breast, superior portion Psychiatric: A+Ox3, euthymic affect Lymphatic: + axillary lymphadenopathy (left ) Results & Data Results & Data ([facility]) Vital Signs (Past 12 Hours) Vital Signs Temp Pulse Pulse Resp BP Pulse Ox 11/10/19 15:28 36.8 C 67 18 99/62 L 96 11/10/19 11:35 37.0 C 69 18 95/47 L 97 11/10/19 09:00 70 11/10/19 07:22 36.9 C 65 18 91/48 L 97 Laboratory Results Laboratory Results - last 24 hr 11/09/19 11/09/19 11/09/19 16:17 16:17 16:17 WBC RBC Hgb Hct MCV MCH MCHC RDW Std Deviation RDW Coeff of Asmita Plt Count MPV Immature Gran % (Auto) Neut % (Auto) Lymph % (Auto) [place] % (Auto) Eos % (Auto) Baso % (Auto) Immature Gran # (Auto) Neut # (Auto) Lymph # (Auto) [place] # (Auto) Eos # (Auto) Baso # (Auto) Absolute Nucleated RBC Nucleated RBC % (auto) Peripher Smr Path Cons PT 11.4 INR 1.1 APTT 27.2 PTT Ratio 1.0 Sodium 134 L Potassium 3.5 Chloride 102 Carbon Dioxide 26 Anion Gap 6.0 BUN 14 Creatinine 0.74 Est Cr Clr Drug Dosing 50.9 Est GFR ( Amer) 92.5 Est GFR (Non-Af Amer) 79.8 BUN/Creatinine Ratio 19.6 Glucose 141 H Lactate Calcium 8.6 Magnesium 1.7 L Total Bilirubin 0.6 Direct Bilirubin AST 55 H ALT 34 Alkaline Phosphatase 77 Troponin I < 0.015 Total Protein 6.9 Albumin 3.6 Globulin 3.3 Albumin/Globulin Ratio 1.1 A. phagocytophilum DNA Lyme Disease IgG Ab Lyme IgG (Western Blot) Lyme IgG 18 kDa Band Lyme IgG 23 kDa Band Lyme IgG 28 kDa Band Lyme IgG 30 kDa Band Lyme IgG 39 kDa Band Lyme IgG 41 kDa Band Lyme IgG 45 kDa Band Lyme IgG 58 kDa Band Lyme IgG 66 kDa Band Lyme IgG 93 kDa Band Lyme IgM Ab (WB) Lyme Disease IgM Ab Lyme IgM 23 kDa Band Lyme IgM 39 kDa Band Lyme IgM 41 kDa Band COVID-19 PCR Influenza Type A (PCR) Influenza Type B (PCR) 11/09/19 11/09/19 11/09/19 16:17 16:17 16:17 WBC RBC Hgb Hct MCV MCH MCHC RDW Std Deviation RDW Coeff of Asmita Plt Count MPV Immature Gran % (Auto) Neut % (Auto) Lymph % (Auto) [place] % (Auto) Eos % (Auto) Baso % (Auto) Immature Gran # (Auto) Neut # (Auto) Lymph # (Auto) [place] # (Auto) Eos # (Auto) Baso # (Auto) Absolute Nucleated RBC Nucleated RBC % (auto) Peripher Smr Path Cons PT INR APTT PTT Ratio Sodium Potassium Chloride Carbon Dioxide Anion Gap BUN Creatinine Est Cr Clr Drug Dosing Est GFR ( Amer) Est GFR (Non-Af Amer) BUN/Creatinine Ratio Glucose Lactate 1.0 Calcium Magnesium Total Bilirubin Direct Bilirubin AST ALT Alkaline Phosphatase Troponin I Total Protein Albumin Globulin Albumin/Globulin Ratio A. phagocytophilum DNA Lyme Disease IgG Ab Negative Lyme IgG (Western Blot) Pending Lyme IgG 18 kDa Band Pending Lyme IgG 23 kDa Band Pending Lyme IgG 28 kDa Band Pending Lyme IgG 30 kDa Band Pending Lyme IgG 39 kDa Band Pending Lyme IgG 41 kDa Band Pending Lyme IgG 45 kDa Band Pending Lyme IgG 58 kDa Band Pending Lyme IgG 66 kDa Band Pending Lyme IgG 93 kDa Band Pending Lyme IgM Ab (WB) Pending Lyme Disease IgM Ab Equivocal A Lyme IgM 23 kDa Band Pending Lyme IgM 39 kDa Band Pending Lyme IgM 41 kDa Band Pending COVID-19 PCR Influenza Type A (PCR) Influenza Type B (PCR) 11/09/19 11/09/19 11/09/19 16:17 16:19 16:19 WBC RBC Hgb Hct MCV MCH MCHC RDW Std Deviation RDW Coeff of Asmita Plt Count MPV Immature Gran % (Auto) Neut % (Auto) Lymph % (Auto) [place] % (Auto) Eos % (Auto) Baso % (Auto) Immature Gran # (Auto) Neut # (Auto) Lymph # (Auto) [place] # (Auto) Eos # (Auto) Baso # (Auto) Absolute Nucleated RBC Nucleated RBC % (auto) Peripher Smr Path Cons PT INR APTT PTT Ratio Sodium Potassium Chloride Carbon Dioxide Anion Gap BUN Creatinine Est Cr Clr Drug Dosing Est GFR ( Amer) Est GFR (Non-Af Amer) BUN/Creatinine Ratio Glucose Lactate Calcium Magnesium Total Bilirubin Direct Bilirubin AST ALT Alkaline Phosphatase Troponin I Total Protein Albumin Globulin Albumin/Globulin Ratio A. phagocytophilum DNA Pending Lyme Disease IgG Ab Lyme IgG (Western Blot) Lyme IgG 18 kDa Band Lyme IgG 23 kDa Band Lyme IgG 28 kDa Band Lyme IgG 30 kDa Band Lyme IgG 39 kDa Band Lyme IgG 41 kDa Band Lyme IgG 45 kDa Band Lyme IgG 58 kDa Band Lyme IgG 66 kDa Band Lyme IgG 93 kDa Band Lyme IgM Ab (WB) Lyme Disease IgM Ab Lyme IgM 23 kDa Band Lyme IgM 39 kDa Band Lyme IgM 41 kDa Band COVID-19 PCR NEGATIVE Influenza Type A (PCR) Neg for Influ A Influenza Type B (PCR) Neg for Influ B 11/10/19 11/10/19 06:21 06:21 WBC 6.15 RBC 3.65 L Hgb 11.2 L Hct 33.4 L MCV 91.5 MCH 30.7 MCHC 33.5 RDW Std Deviation 47.7 H RDW Coeff of Asmita 14.1 Plt Count 100 L MPV 9.7 Immature Gran % (Auto) 0.2 Neut % (Auto) 81.2 Lymph % (Auto) 8.3 [place] % (Auto) 10.1 Eos % (Auto) 0.0 Baso % (Auto) 0.2 Immature Gran # (Auto) 0.01 Neut # (Auto) 5.00 Lymph # (Auto) 0.51 L [place] # (Auto) 0.62 H Eos # (Auto) 0.00 Baso # (Auto) 0.01 Absolute Nucleated RBC 0.00 Nucleated RBC % (auto) 0.0 Peripher Smr Path Cons PT INR APTT PTT Ratio Sodium 137 Potassium 3.3 L Chloride 107 Carbon Dioxide 25 Anion Gap 5.0 BUN 14 Creatinine 0.66 Est Cr Clr Drug Dosing 58.4 Est GFR ( Amer) 100.9 Est GFR (Non-Af Amer) 87.0 BUN/Creatinine Ratio 21.3 H Glucose 133 H Lactate Calcium 7.5 L Magnesium 1.8 Total Bilirubin 0.5 Direct Bilirubin 0.2 AST 150 H ALT 80 H Alkaline Phosphatase 81 Troponin I Total Protein 5.7 L Albumin 2.6 L Globulin Albumin/Globulin Ratio A. phagocytophilum DNA Lyme Disease IgG Ab Lyme IgG (Western Blot) Lyme IgG 18 kDa Band Lyme IgG 23 kDa Band Lyme IgG 28 kDa Band Lyme IgG 30 kDa Band Lyme IgG 39 kDa Band Lyme IgG 41 kDa Band Lyme IgG 45 kDa Band Lyme IgG 58 kDa Band Lyme IgG 66 kDa Band Lyme IgG 93 kDa Band Lyme IgM Ab (WB) Lyme Disease IgM Ab Lyme IgM 23 kDa Band Lyme IgM 39 kDa Band Lyme IgM 41 kDa Band COVID-19 PCR Influenza Type A (PCR) Influenza Type B (PCR) PG Care Time/CCT Total # of Minutes Spent Total Time Spent with Patient: Total time spent is greater than 50% in coordination of care (as documented) at patient's floor/unit and/or counseling patient: Coding Level of Care Code 57811 Subseq Hosp Care Lvl 2 Diagnoses Lyme disease A69.20 Fever R50.9 Fever type: unspecified Syncope R55 Syncope type: unspecified Anaplasmosis A77.49 Thrombocytopenia D69.6 Elevated AST (SGOT) R74.0 Hypomagnesemia E83.42 Hyperlipidemia E78.5 Hyperlipidemia type: unspecified Hypertension I10 Hypertension type: essential hypertension Vitamin D deficiency E55.9 DVT prophylaxis Z29.9 (1) Fever Fever type: unspecified Qualified Code(s): R50.9 - Fever, unspecified (2) Syncope Syncope type: unspecified Qualified Code(s): R55 - Syncope and collapse (3) Hyperlipidemia Hyperlipidemia type: unspecified Qualified Code(s): E78.5 - Hyperlipidemia, unspecified (4) Hypertension Hypertension type: essential hypertension Qualified Code(s): I10 - Essential (primary) hypertension
[2019-11-10] MEDS: ENOXAPARIN INJ 40 MG/0.4 ML SYR SQ SCH (20:11)
[2019-11-10 20:28] LABS: Appearance Urine Clear (Clear); Bacteria Urine Automated Negative (Negative); Bilirubin Urine Negative (Negative); Blood Urine Negative (Negative); Color Urine Yellow; Glucose Urine UA Negative (Negative); Ketones Urine Negative (Negative); Leukocyte Esterase Urine 2+ (Negative); Nitrite Urine Negative (Negative); Protein Urine Trace (Negative); RBC Urine Automated 0-4 /hpf (0-4); Specific Gravity Urine 1.013 (1.000-1.030); Urobilinogen Urine Negative (Negative); WBC Urine Automated >30 /hpf (0-5); pH Urine 5.5 (4.5-7.5)
--- NOTE | 2019-11-10 22:04 | Electrocardiogram Report ---
Test Reason : Blood Pressure : / mmHG Vent. Rate : 058 BPM Atrial Rate : 058 BPM P-R Int : 142 ms QRS Dur : 082 ms QT Int : 382 ms P-R-T Axes : 060 045 039 degrees QTc Int : 374 ms Poor data quality, interpretation may be adversely affected Sinus bradycardia Nonspecific ST abnormality Abnormal ECG When compared with ECG of 07-MAY-2011 15:28, Vent. rate has decreased BY 34 BPM T wave inversion no longer evident in Inferior leads QT has shortened Confirmed by Shimon Mendez ([id number]) on 11/10/2019 10:04:26 PM Referred By: REFERRED SELF Confirmed By:Shimon Mendez
[2019-11-11] MEDS: SODIUM CHLORIDE 0.9% 1000ML 1,000 ML IV SCH (04:27)
[2019-11-11] MEDS: DOXYCYCLINE HYCLATE 100 MG in DEXTROSE 5% 100 ML IV SCH (04:27)
[2019-11-11 06:06] LABS: Basophils # (auto) 0.02 K/uL (0-0.2); Basophils % (auto) 0.6 %; Eosinophils # (auto) 0.02 K/uL (0-0.5); Eosinophils % (auto) 0.6 %; Hematocrit (blood only) 33.6 % (37-47); Hemoglobin 11.1 g/dL (12.0-16.0); Immature Granulocytes # (auto) 0.01 K/uL (0.00-0.02); Immature Granulocytes % (auto) 0.3 %; Lymphocytes # (auto) 1.31 K/uL (1.2-3.4); Lymphocytes % (auto) 38.4 %; Mean Corpuscular Hemoglobin 30.8 pg (25-34); Mean Corpuscular Volume 93.3 fL (80-100); Mean Platelet Volume 10.3 fL (7.4-10.4); Monocytes # (auto) 0.49 K/uL (0.11-0.59); Monocytes % (auto) 14.4 %; Neutrophils # (auto) 1.56 K/uL (1.4-6.5); Neutrophils % (auto) 45.7 %; Platelet Count 111 K/uL (130-400); RDW Coefficient of Variation 14.4 % (11.5-14.5); RDW Standard Deviation 49.2 fL (36.4-46.3); White Blood Count 3.41 K/uL (4.8-10.8)
[2019-11-11 06:43] LABS: BUN Creatinine Ratio 18.7 (10-20); Calcium 7.9 mg/dl (8.5-10.1); Est GFR (African American) 103.5; Est GFR (Non-African American) 89.3; Potassium 4.3 mmol/L (3.5-5.1)
[2019-11-11] MEDS: CYANOCOBALAMIN 500 MCG TABLET (VITAMIN B-12) PO SCH (08:44)
[2019-11-11] MEDS: CHOLECALCIFEROL 1,000 UNITS 25 MCG TAB PO SCH (08:44)
[2019-11-11] MEDS: ASPIRIN 81 MG ECTAB PO SCH (08:45)
--- NOTE | 2019-11-11 12:02 | Discharge Summary ---
Date of Service date of admission - November 09, 2019 date of discharge - November 11, 2019 Admission HPI Per Admitting Provider This patient is a 74-year-old female with a history of HTN, hyperlipidemia, prediabetes, and UTI, who presents to the ER after having a tick bite on her left breast this past Sunday. She is been having fevers to 102 ever since and low appetite. She is also had a mild headache all over, denies neck pain, neck stiffness, or photophobia. She has a rash on the left breast. She is also had a mild cough for the last few days and had a chest x-ray on 11/03 with her PCP which did show a right suprahilar possible infiltrate for which she needed a chest CT ordered for follow-up. In the triage here, she was found to be febrile and while triage nurse was asking her questions, she was witnessed to have a brief syncopal episode with twitching. The patient remembers everything surrounding passing out, and thinks she is just very dehydrated and did not eat much today. She has never passed out before. She denies any chest pain or shortness of breath, but reports she was feeling a little bit lightheaded at that time. Denies any abdominal pain. She is little bit nauseated now after receiving a dose of oral doxycycline. She is normally very active and considers herself a very healthy person. In the ER, she was found to be negative for COVID, negative for flu. Her chest x-ray again showed a right apex infiltrate. Her lactate was normal. Her AST was mildly elevated at 55, and her platelets were mildly low at 128, her WBC count was mildly low at 4. Her Lyme IgM was equivocal and the Western blot was sent. In the ER, she was given a dose of IV ceftriaxone, p.o. doxycycline, a liter of IV fluids, and a dose of Tylenol. She will be admitted for febrile illness with syncope, likely with Lyme disease and possibly also with anaplasmosis. Principal Diagnosis 1. early stage Lyme Disease 2. concern of co-infection with other tickborne illness (anaplasmosis) Discharge Exam Constitutional no acute distress and no altered mental status ENMT external ear and nose normal, oropharynx normal Respiratory normal respiratory effort, lungs clear to auscultation Cardiovascular Rate/Rhythm: regular rate and regular rhythm Heart Sounds: normal S1 and normal S2; no murmur Vessels: posterior tibial pulses present and dorsalis pedis pulses present; no JVD Extremities: no edema Gastrointestinal (Abdomen) Inspection/Auscultation: normal bowel sounds; abdomen not distended Percussion/Palpation: abdomen soft and + splenomegaly (tip palpable ); abdomen nontender and no hepatomegaly Skin classic "bulls-eye" rash of left upper breast/left chest wall Psychiatric A+Ox3, euthymic affect Lymphatic + axillary lymphadenopathy (left ) Discharge Data Allergies Allergy/AdvReac Type Severity Reaction Status Date / Time No Known Allergies Allergy Unverified 11/09/19 16:33 Consultations Consult Lung Nodule Program Routine Ordered Studies CT chest w con - IMPRESSION: 1. Biapical opacities which favor scarring, including a 1.9 cm right apical opacity. 2. A few additional smaller nodular opacities that measure up to 6 mm. These may reflect a mild infectious process or old granulomatous process. A neoplastic etiology is considered less likely however a follow-up CT in 3 months is recommended to ensure stability/resolution. 3. Prominent but nonenlarged left axillary lymph nodes which may be reactive. These can be assessed on follow-up chest CT. Echocardiogram - * EF 70-75%, hyperdynamic LV * no valvular abnormalities * no diastolic dysfunction * no regional wall motion abnormalities of LV Hospital Course (1) Lyme disease: Suspected early Lyme disease given recent tick bite left upper chest and classic erythema migrans rash over the site of the tick bite. Concern for coinfection with anaplasmosis given elevated LFTs and thrombocytopenia along with cough. Lyme IgM was equivocal. Western blot for Lyme and Anaplasmosis DNA sent. Patient improved clinically and fever resolved with doxycycline while hospitalized. She received IVF and supportive care. At discharge she will complete 12 additional days of doxycycline for a total course of 14 days of treatment. (2) Fever: Secondary to suspected Lyme disease and possible anaplasmosis as noted above. Fever resolved with doxycycline while hospitalized. Blood cultures were negative. Urine culture was negative. COVID-[address] CT showed biapical opacities which were thought to be due to scarring. Pulmonary nodules were also present. She did have a cough but lung exam was normal. If there was any bacterial process within the lungs doxycycline should cover such. She will need repeat chest CT in 3 months as recommended by radiology. (3) Syncope: Likely due to low-normal BPs in setting of illness (systolic BPs were 90s throughout much of the stay - patient is normally hypertensive). Echo was hyperdynamic c/w volume depletion. Telemetry was normal while hospitalized. (4) Anaplasmosis: suspected see discussion above anaplasmosis DNA was sent and was pending at discharge (5) Thrombocytopenia: 2nd to possible anaplasmosis or erhlichiosis lowest platelet count was 100, improving to 111 on AM of discharge she will need a repeat CBC within 1 week of discharge to ensure normalization and recovery (6) Elevated AST (SGOT): likely 2nd to tick-borne illness (possible anaplasmosis) COVID-19 test was negative viral process (EBV, CMV, etc) all possible but less likely AST and ALT appeared to peak during the stay recommend repeat LFTs within 1 week of discharge to ensure normalization advised AGAINST tylenol usage and alcohol until LFTs are repeated as outpatient (7) Hypomagnesemia: resolved with replacement (8) Hyperlipidemia: No longer taking medication for this, wants to discuss with her PCP (9) Hypertension: systolic BPs were low while hospitalized. Losartan was placed on hold during the visit but was resumed upon discharge. (10) Vitamin D deficiency: Continue home vitamin D supplement (11) Abnormal CT scan, chest: see "data" section for details of chest CT. patient is aware she will need repeat chest CT in 3 months, sooner if cough persists. referral made to [facility] Pulmonary Nodule program at discharge. Total Time Total Time Spent Total Time Spent (In Minutes): 40 Total Time Includes: Examination of the Patient, Discharge Planning and Medication Reconciliation Discharge Plan Discharge Items Patient Disposition: Home - Self-Care Reason For Visit: FEVER, SUSPECTED LYME/ANAPLASMOSIS INFECTION Discharge Diagnosis: 1. suspected early-stage Lyme Disease 2. possible anaplasmosis (another tick-borne illness) 3. low platelets - mild - likely due to #2 4. mildly elevated liver function tests - likely due to #2 5. low blood pressure due to illness - resolved Activity: As commented below Activity Comment: gradually increase activities over the next 5-7 days Exercise/Sports: Gradually increase as tolerated Driving/Machine Use: Resume 1 day after discharge Non-emergency contact: Primary Care Provider Call non-emergency contact if: you have any medication questions and your symptoms worsen Follow-up/Referrals: Elvis Garcia MD [Primary Care Provider] - 11/14/19 10:00 am (Please, follow up at Dr. Garcia's office with his associate, Melina Gonzalez PA-C, on SundayNovember 13 at 10:00 am. *If you need to change this appointment, call their office at [phone].) Diet: Regular Addtl Attending Provider Instructions: You presented with fever, bulls-eye rash on your left breast, dehydration, and simply feeling poorly. You had a brief episode of passing out in the ER triage area - likely due to low blood pressure and dehydration. Your symptoms, signs, and lab tests suggested early-stage Lyme Disease. There was also concern for anaplasmosis - another form of tick-borne illness - due to your cough and lab abnormalities. Fortunately doxycycline antibiotic treats BOTH tick-borne illnesses (lyme and anasplasmosis). Your fever and symptoms all improved during the hospital stay with antibiotics. COVID-19 testing was negative. Flu testing was negative. Blood cultures were negative. Your echocardiogram and telemetry monitoring of your heart were both normal. Recommendations - 1. doxycycline 100mg twice daily for 12 more days. Note the following - * sometimes doxycycline can cause heartburn * it can also cause a rash if you go out in the sun while you are taking the antibiotic; please use sunscreen and cover up 2. would use motrin/ibuprofen in mandi of tylenol since your liver function tests are mildly elevated 3. please have Dr Garcia repeat your CBC and Liver tests at time of hospital follow-up; these labs will normalize as the infection clears 4. please see handouts regarding prevention of tick-borne disease 5. ok to resume your blood pressure medication 6. plenty of fluids over the next few days as you recover 7. you will need a repeat CT of the chest in 3 months due to suspected scar tissue seen and a nodule; our lung nodule program will coordinate this 8. again you do not need to do anything for the rash on your chest; it will resolve with time Return to [facility] if - * you develop recurrent high fevers over 101 degrees * you develop shortness of breath * you develop severe diarrhea * any other concerns Pending Studies at Discharge: Yes Studies:: 1. confirmatory lyme disease testing 2. anaplasmosis testing 3. blood cultures (thus far negative - no evidence of blood stream infection) Stand-Alone Forms: My [facility], Smoking Cessation Medications and DC Order Prescriptions: New doxycycline hyclate 100 mg Capsule 100 mg PO BID 12 Days Qty: 24 RF: 0 Continued losartan 50 mg tablet 50 mg PO DAILY Qty: 90 RF: 3 aspirin [Aspirin Low Dose] 81 mg Tablet,Delayed Release (Dr/Ec) 81 mg PO DAILY RF: 0 cyanocobalamin (vitamin B-12) 500 mcg Tablet 500 mcg PO DAILY RF: 0 cholecalciferol (vitamin D3) 2,000 unit Tablet 2,000 unit PO DAILY RF: 0 [id number] [krill oil] 1,[id number] mg Capsule 1 cap PO DAILY RF: 0 Discharge Orders: Discharge Order (Routine); Ordered 11/11/19 Ordered By: Dexter Schultz/Other Patient Handouts: Lyme Disease Prevent, ED Lyme Disease Admission Data Admit Date/Time: 11/09/19 18:45 Attending Provider: Dexter Jonas Admit Provider: Sonal Wang Primary Care Provider: Elvis Garcia Other Providers: Sonal Wang Other Interventions: Discharge Summary Assessment (RN) Last Done: 11/11/19 13:04 DC Date/Time DO NOT enter until pt leaves facility: 11/11/19 13:49 Coding Level of Care Code D/C Day Management >30 mins Diagnoses Lyme disease A69.20 Fever R50.9 Fever type: unspecified Syncope R55 Syncope type: unspecified Anaplasmosis A77.49 Thrombocytopenia D69.6 Elevated AST (SGOT) R74.0 Hypomagnesemia E83.42 Hyperlipidemia E78.5 Hyperlipidemia type: unspecified Hypertension I10 Hypertension type: essential hypertension Vitamin D deficiency E55.[address] scan, chest R93.89
[2019-11-11] MEDS: POTASSIUM CHLORIDE 20 MEQ TABCR PO SCH (12:36)
[2019-11-11 15:59] LABS: 18KDIGG Band NON-REACTIVE; 23KDIGG Band NON-REACTIVE; 23KDIGM Band REACTIVE; 28KDIGG Band REACTIVE; 30KDIGG Band NON-REACTIVE; 39KDIGG Band NON-REACTIVE; 39KDIGM Band NON-REACTIVE; 41KDIGG Band NON-REACTIVE; 41KDIGM Band NON-REACTIVE; 45KDIGG Band NON-REACTIVE; 58KDIGG Band NON-REACTIVE; 66KDIGG Band NON-REACTIVE; 93KDIGG Band NON-REACTIVE; Lyme Antibodies, WB IgG NEGATIVE (NEGATIVE); Lyme Antibodies, WB IgM NEGATIVE (NEGATIVE)
[2019-11-11] MEDS ORDERED: DOXYCYCLINE HYCLATE 100 MG CAP PO SCH (21:00)
--- NOTE | 2019-11-18 08:54 | Coding Query ---
CODING QUERY To promote full compliance with coding requirements relating to patient care, provider participation is requested in all cases of senior support engineer uncertainty. Please assist us with the question(s) below: Coding Question(s): The ER documents possible pneumonia and the H&P documents, "Unclear if this represents pneumonia. Anaplasmosis can cause pneumonia and bronchitis. -We will check chest CT for further clarification Doxycycline would cover for pneumonia as well." and there is documentation on the Discharge Summary of, "Chest CT showed biapical opacities which were thought to be due to scarring. Pulmonary nodules were also present. She did have a cough but lung exam was normal. If there was any bacterial process within the lungs doxycycline should cover such.". It is not clear if the Possible Pneumonia was ruled-out or still Possible. Please specify below, in your clinical opinion, regarding possible pneumonia. ( ) Possible Pneumonia was treated ( x ) Pneumonia was Ruled-Out ( ) Other: Please Specify Physician's Response(s): Thank you Loreto Mirza Principal Diagnosis: "that condition established after study, to be chiefly responsible for occasioning the admission of the patient to the hospital for care." Co-Existing Principal Diagnosis: "when two or more diagnoses equally meet the criteria for principal diagnosis as determined by the circumstances of admission, diagnostic work up, and/or therapy provided, and the Alphabetic Index, Tabular List, or another coding guideline does not provide sequencing direction, any one of the diagnoses may be sequenced first." "When the physician has documented what appears to be a current diagnosis in the body of the record, but has not included the diagnosis in the final diagnostic statement, the physician should be asked whether the diagnosis should be added." (Source Coding Clinic 2 QTR90. p3-4) RIGO
== END 2019-11-11 13:49 | disposition home or self-care (01) | DRG 868 ==
LOC: ED 15:53 → SUATTDRO 18:45 → 2N 18:45

== ENCOUNTER 2021-09-08 13:27 | Observation (INO) ==
--- NOTE | 2021-09-08 13:51 | Emergency Department Note ---
Impression & Plan Chest pain, HTN (hypertension), Arm pain ED Provider Note NAME: KEI KHAN AGE: 76 SEX: F : 1945 ARRIVES VIA: Walk-In INFORMANT: Patient ED PROVIDER(S): Andrew Panda DO CHIEF COMPLAINT: chest pain HPI: Patient is a 76-year-old female with a past medical history of sjogrens, hypertension, hyperlipidemia, vitamin D deficiency that presents to the ER for midsternal chest pressure which has been coming and going for the past several days. She notes this only occurs in the afternoon. Not generally associated with exertion. Not associated with eating or drinking. Denies any belly pain, nausea, vomiting, or diarrhea. No dysuria, urgency, or frequency. She thinks that she gets some left arm pain today but had no chest pain. She thinks that she may have gotten some left arm pain as well with the chest pain over the past several afternoon/nights but is not sure. Today she did have some left arm pain as well but no chest pressure. No left arm pain has been off and on throughout today. She denies any smoking. ROS: See above HPI for pertinent positives & negatives. A total of 10 systems reviewed and were otherwise negative. PAST MEDICAL HISTORY:See Below PAST SURGICAL HISTORY:See Below FAMILY HISTORY:See Below SOCIAL HISTORY:See Below HOME MEDICATIONS:See Below ALLERGIES:See Below VITALS:See Below PHYSICAL EXAMINATION: GENERAL: Sitting up in bed, alert, well appearing, well nourished, no distress, non-toxic EYE EXAM: normal conjunctiva. PERRL and EOM's grossly intact. OROPHARYNX: no exudate, no erythema, lips, buccal mucosa, and tongue normal and mucous membranes are moist NECK: supple, no nuchal rigidity, no adenopathy, non-tender LUNGS: Clear to auscultation. Normal chest wall mechanics HEART: no murmurs, S1 normal and S2 normal ABDOMEN: abdomen soft, non-tender, normo-active bowel sounds, no masses, no rebound or guarding. UPPER EXTREMITIES: upper extremities are grossly normal. LOWER EXTREMITIES: No pitting edema. Calves are equal bilateral NEURO EXAM: Normal sensorium, cranial nerves II-XII grossly intact, normal speech, no gross weakness of arms, no gross weakness of legs. MEDICAL DECISION MAKING: Patient is a 76-year-old female with a past medical history of hypertension hyperlipidemia presents the ER for intermittent chest pain and left arm pain. IV was established blood was obtained. She was found to be fairly hypertensive with systolic pressures of 200 initially. This trended down to 170. Labs show mild leukopenia 4000. No significant anemia. BMP with LFTs bilirubin was unremarkable. Troponin was negative. Lipase was unremarkable. Chest x-ray was unremarkable. EKG was normal. Patient was given aspirin. She no chest pain while she was here. Attempted to get a stress test performed today but due to timing was unable to. Discussed with Dr. Rosario and was able to obtain a stress tomorrow as an out pt but patient feels uncomfortable going home and no sterling that her arm pain has been off and on today and she gets her chest pain in the afternoon. Discussed with Alden from [place] hospitalist and they will watch her over night. Triage Nursing notes reviewed. Limited review of prior medical records performed Vital Signs: reviewed and remarkable for HTN Differential diagnosis: Differential diagnoses includes but is not limited to gastritis, peptic ulcer disease, GERD, gallbladder disease, pancreatitis, small bowel obstruction, acute coronary syndrome, pericarditis, ischemic bowel, irritable bowel disease, irritable bowel syndrome, appendicitis, diverticulitis, malignancy, hernia, urinary tract infection, torsion, perforation, trauma, infectious. ER treatment provided: See below Diagnostics interpreted by me: ECG: Sinus rhythm rate of 66 Normal axis No PVCs QTC 413 Cardiac Monitoring: An order was placed for continuous cardiac monitoring. The monitor shows a rate of 82 with sinus rhythm. Laboratory studies: As stated above and show below. Imaging studies: Portable AP upright 1 view the chest was unremarkable Consultation(s): D/W alden from [facility] hospitalist Discussed with Ayush Rosario listed above Procedures: none Critical Care: None Past Med/Surg History Medical History Anaplasmosis Bronchiectasis without complication Coughing Diverticulosis of colon Elevated AST (SGOT) Encounter for pre-operative examination Fever Hearing loss in right ear Hematuria HLD (hyperlipidemia) HTN (hypertension) Hypomagnesemia Keratoconjunctivitis Lyme disease Lyme disease Macular degeneration of right eye Multiple pulmonary nodules determined by computed tomography of lung Sjogren's disease SS-B antibody positive Syncope Thrombocytopenia Vitamin D deficiency Weight loss 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 Surgical History History of colonoscopy with polypectomy History of left breast biopsy History of tooth extraction History of total hysterectomy with bilateral salpingo-oophorectomy (BSO) Family History Father Hearing loss Congestive heart failure COPD (chronic obstructive pulmonary disease) Mother Hemorrhagic stroke Hypertension Family history of diabetes mellitus Stroke Sister Epilepsy Ovarian cancer Diabetes Coronary heart disease Breast cancer Carcinoma of tongue Hypertension Family history of diabetes mellitus Brother Brain cancer Hearing loss Neurofibromatosis Hypertension Multiple myeloma Prostate cancer Other Cancer No family history of adverse response to anesthesia Denies family history of Myocardial infarction Colorectal cancer Social History Smoking Status: Never smoker Second Hand Exposure: No (father smoked); Hx Alcohol Use: Yes Alcohol type: wine Alcohol Intake Frequency: 2-3 x/Week Hx Substance Use: No Preferred Language: [place] Communication Ability: Effective Visual Impairment: Limited Hearing Ability: Normal Director Of Research And Development Required: No Beliefs That Will Affect Care: None marital status: Current Living Situation: Spouse current occupational status: retired How many Children do You have: 3 How many Children do You have Comment: 3 Feels Safe at Home: Yes Childhood Exposure to Second-Hand Smoke: Yes caffeine: Yes Dental Care, Regularly: Yes Physical Activity Frequency: Daily Seatbelt Use: always Sunscreen Use: Yes Assistive Devices: Denture - Upper, Denture - Lower and Glasses Allergies Allergies Allergy/AdvReac Type Severity Reaction Status Date / Time No Known Allergies Allergy Verified 09/08/21 14:40 Home Meds Home Medications Medication Instructions Recorded Confirmed cholecalciferol (vitamin D3) 50 2,000 unit PO QAM 03/14/18 09/08/21 mcg (2,000 unit) tablet cyanocobalamin (vitamin B-12) 500 500 mcg PO QAM 03/14/18 09/08/21 mcg tablet calcium carb 300 mg-D3 800 1 tab PO DAILY 03/15/20 09/08/21 unit-mag ox 25 mg-supervisor blueprinting and photocopy 0.5 mg-hilario-Zn tablet (Caltrate + D3 Plus Minerals) elderberry fruit 200 mg capsule 200 mg PO DAILY cap 08/12/20 09/08/21 Probiotic For Women 1 cap PO DAILY 09/08/21 09/08/21 losartan 50 mg tablet 50 mg PO QAM 09/08/21 09/08/21 Results & Data (ED) Vital Signs Vital Signs - 24 hr 09/08/21 13:29 09/08/21 14:17 09/08/21 14:19 Temperature 36.6 C Temperature Source Temporal Artery Scan Pulse Rate 85 71 Respiratory Rate 17 18 Respiratory Effort / Characteristics Non-Labored Blood Pressure 200/99 H Blood Pressure Mean 132 Pulse Oximetry 98 Oxygen Delivery Method Room Air Room Air Sepsis Recent Fever Within 48 Hours No Sepsis New/Unexplained Change in Mental Status N/A Sepsis Action Taken by Nursing No Action Required 09/08/21 14:20 09/08/21 14:30 09/08/21 15:00 Temperature Temperature Source Oral Pulse Rate 68 64 Respiratory Rate 13 14 Respiratory Effort / Characteristics Blood Pressure 162/89 H 169/86 H Blood Pressure Mean 113 113 Pulse Oximetry Oxygen Delivery Method Room Air Sepsis Recent Fever Within 48 Hours Sepsis New/Unexplained Change in Mental Status Sepsis Action Taken by Nursing Laboratory Data Result diagrams: 09/08/21 14:10 09/08/21 14:10 Lab Results 09/08/21 09/08/21 Range/Units 14:10 14:10 WBC 4.42 L (4.8-10.8) K/uL RBC 4.32 (4.2-5.4) M/uL Hgb 13.3 (12.0-16.0) g/dL Hct 39.3 (37-47) % MCV 91.0 (80-100) fL MCH 30.8 (25-34) pg MCHC 33.8 (32-36) g/dL RDW Std Deviation 44.7 (36.4-46.3) fL RDW Coeff of Asmita 13.5 (11.5-14.5) % Plt Count 178 (130-400) K/uL MPV 9.7 (7.4-10.4) fL Immature Gran % (Auto) 0.2 % Neut % (Auto) 59.7 % Lymph % (Auto) 31.7 % Door % (Auto) 7.0 % Eos % (Auto) 0.9 % Baso % (Auto) 0.5 % Neut # (Auto) 2.64 (1.4-6.5) K/uL Lymph # (Auto) 1.40 (1.2-3.4) K/uL Door # (Auto) 0.31 (0.11-0.59) K/uL Eos # (Auto) 0.04 (0-0.5) K/uL Baso # (Auto) 0.02 (0-0.2) K/uL Immature Gran # (Auto) 0.01 (0.00-0.02) K/uL Sodium 141 (136-145) mmol/L Potassium 3.6 (3.5-5.1) mmol/L Chloride 105 (98-107) mmol/L Carbon Dioxide 31 (21-32) mmol/L Anion Gap 5 (3-11) BUN 14 (6-23) mg/dl Creatinine 0.68 (0.6-1.2) mg/dl Est Cr Clr Drug Dosing 55.7 ml/min Est GFR ( Amer) 98.5 ml/min Est GFR (Non-Af Amer) 85.0 ml/min BUN/Creatinine Ratio 20.6 H (10-20) Glucose 100 H (70-99(Fasting)) mg/dl Calcium 9.2 (8.5-10.1) mg/dl Total Bilirubin 0.7 (0.2-1.0) mg/dl AST 26 (13-39) U/L ALT 17 (7-52) U/L Alkaline Phosphatase 66 (34-104) U/L Troponin I < 0.03 (0-0.04) ng/ml Total Protein 6.9 (6.0-8.3) gm/dl Albumin 4.2 (3.4-5.0) gm/dl Globulin 2.7 (2.5-4.0) gm/dl Albumin/Globulin Ratio 1.6 (0.9-2) Lipase 10 L (11-82) U/L Administered Medications Discontinued Medications Aspirin (Aspirin Chew 324 Mg) 324 mg PO NOW STA Stop: 09/08/21 15:13 Last Admin: 09/08/21 15:32 Dose: 324 mg Documented by: [id number] Imaging Data Radiologist's Impression: Chest X-Ray 09/08/21 13:33 XR chest 1V portable CLINICAL HISTORY: Atypical chest pain. COMPARISON STUDY: Chest CT February 28, 2021. FINDINGS: Lung volumes are normal. The right apical opacities are similar to prior exams. There is no pneumothorax or pleural effusion. Cardiac size is normal. Mediastinal contours are normal. There is no evidence for pulmonary edema. IMPRESSION: No acute cardiopulmonary findings. No significant change in several right apical opacities which may reflect scarring. ACT 112: Negative or not required by law. Electronically signed by: Quan Robins M.D. 09/08/2021 1:51 PM Discharge Plan Visit Data Chief Complaint: Cardiac Assessment Stated Complaint: CHEST PAIN, HIGH BP, L ARM PAIN- DOC REF ED Provider: Andrew Panda Discharge Problem: Chest pain, HTN (hypertension), Arm pain Forms Stand Alone Forms: [facility] [employer] Prescriptions Prescriptions: No Action Caltrate + D3 Plus Minerals 300 mg-800 unit -25 mg-0.5 mg tablet 1 tab PO DAILY RF: 0 elderberry fruit 200 mg capsule 200 mg PO DAILY RF: 0 cyanocobalamin (vitamin B-12) 500 mcg Tablet 500 mcg PO QAM RF: 0 cholecalciferol (vitamin D3) 2,000 unit Tablet 2,000 unit PO QAM RF: 0 losartan 50 mg tablet 50 mg PO QAM RF: 0 Probiotic For Women 1 cap PO DAILY RF: 0 Referrals Referrals: Elvis Garcia MD [Primary Care Provider] - Discharge Problem: Chest pain Qualifiers: Chest pain type: unspecified Qualified Code(s): R07.9 - Chest pain, unspecified HTN (hypertension) Qualifiers: Hypertension type: unspecified Qualified Code(s): I10 - Essential (primary) hypertension Arm pain Qualifiers: Laterality: left Qualified Code(s): M79.602 - Pain in left arm
[2021-09-08 14:21] LABS: Basophils # (auto) 0.02 K/uL (0-0.2); Basophils % (auto) 0.5 %; Eosinophils # (auto) 0.04 K/uL (0-0.5); Eosinophils % (auto) 0.9 %; Hematocrit (blood only) 39.3 % (37-47); Hemoglobin 13.3 g/dL (12.0-16.0); Immature Granulocytes # (auto) 0.01 K/uL (0.00-0.02); Immature Granulocytes % (auto) 0.2 %; Lymphocytes % (auto) 31.7 %; Mean Corpuscular Hemoglobin 30.8 pg (25-34); Mean Corpuscular Hgb Conc 33.8 g/dL (32-36); Mean Platelet Volume 9.7 fL (7.4-10.4); Monocytes # (auto) 0.31 K/uL (0.11-0.59); Neutrophils # (auto) 2.64 K/uL (1.4-6.5); Neutrophils % (auto) 59.7 %; Platelet Count 178 K/uL (130-400); RDW Coefficient of Variation 13.5 % (11.5-14.5); RDW Standard Deviation 44.7 fL (36.4-46.3); Red Blood Count 4.32 M/uL (4.2-5.4); White Blood Count 4.42 K/uL (4.8-10.8)
[2021-09-08 14:47] LABS: Troponin I < 0.03 ng/ml (0-0.04)
[2021-09-08 14:54] LABS: Alanine Aminotransferase 17 U/L (7-52); Albumin Globulin Ratio 1.6 (0.9-2); Albumin Level 4.2 gm/dl (3.4-5.0); Alkaline Phosphatase 66 U/L (34-104); Anion Gap 5 (3-11); Aspartate Aminotransferase 26 U/L (13-39); BUN Creatinine Ratio 20.6 (10-20); Bilirubin,Total 0.7 mg/dl (0.2-1.0); Blood Urea Nitrogen 14 mg/dl (6-23); Calcium 9.2 mg/dl (8.5-10.1); Carbon Dioxide 31 mmol/L (21-32); Chloride 105 mmol/L (98-107); Creatinine Clr Calc Pharmacy 55.7 ml/min; Est GFR (African American) 98.5 ml/min; Globulin 2.7 gm/dl (2.5-4.0); Glucose 100 mg/dl (70-99(Fasting)); Lipase 10 U/L (11-82); Potassium 3.6 mmol/L (3.5-5.1); Sodium 141 mmol/L (136-145); Total Protein 6.9 gm/dl (6.0-8.3)
[2021-09-08] MEDS ORDERED: ASPIRIN CHEW 324 MG PO STA (15:12)
--- NOTE | 2021-09-08 15:56 | Electrocardiogram Report ---
Test Reason : Blood Pressure : / mmHG Vent. Rate : 066 BPM Atrial Rate : 066 BPM P-R Int : 138 ms QRS Dur : 086 ms QT Int : 394 ms P-R-T Axes : 065 061 059 degrees QTc Int : 413 ms Normal sinus rhythm Normal ECG When compared with ECG of 09-NOV-2019 16:05, No significant change was found Confirmed by Christiano Rosario ([id number]) on 09/08/2021 3:56:21 PM Referred By: REFERRED SELF Confirmed By:Christiano Rosario
[2021-09-08] MEDS ORDERED: LOSARTAN POTASSIUM 25 MG TAB PO SCH (17:00)
[2021-09-08] MEDS ORDERED: LOSARTAN POTASSIUM 25 MG TAB PO STA (17:03)
--- NOTE | 2021-09-08 17:13 | History & Physical Report ---
Date of Service September 08, 2021 Assessment & Plan (1) Chest pain: Plan: Atypical chest pain occurring at rest- with negative troponin I and ECGs - DDX: Cardiac vs. HTN induced vs. Anxiety or component of HTN/Anxiety vs. GI - Continue to rule out with Troponin I overnight - ECG without dynamic changes - NPO after midnight- stress ECHO for eval in AM- already ordered - Lipid panel and HGB A1c in the am for total risk stratification and medical optimization - ASA 81 mg in the morning - Famotidine 20mg PO tonight continue if effective (2) HTN (hypertension): Plan: HTN uncontrolled at this time - Losartan 50mg at home- will give an additional 25mg PO now - Trend overnight and adjust therapy as warranted in AM - Labetolol PRN if SBP >180 and/or DBP >95 - Previously well controlled- ? Anxiety related - BUN/HAZARDOUS SUBSTANCES ENGINEER stable (3) Hyperlipidemia: Plan: Lipid panel in the am- resume therapy as indicated (4) Sjogren's disease: Plan: Has not been on any immunotherapy- follows with rheumatology BREANNA positive 10.20 and 3.20 SSB/LA positive 10.20 and 3.20 (5) Multiple pulmonary nodules determined by computed tomography of lung: Plan: Follows with Pulmonary- stable with no increase since 2019- last seen 02/22 (6) Bronchiectasis without complication: Plan: As above- PFTs done 08/22- normal without bronchodilator response mild DLCO reduction- but interpreted as corrected. History of Present Illness Primary Care Provider: Elvis Garcia MD 76 YOF with past medical history of: Sjogren's (not on therapy), HTN, stable pulmonary nodules, bronchiectasis. Patient comes to the EMD today for evaluation for chest pain. The patient has been having "pressure" in the center of her chest for the past 3 days occuring later in the evening after dinner while she is doing no activity. This has been associated with left arm pain at times, but denies this occurring with activity, or being associated with nausea/vomiting, sweats, or difficulty breathing. The patient does endorse she did start checking her blood pressure with these episodes and noted that yesterday her BP was elevated to the 180/90s and then she would wait and check it again and would be to the 160/80 range. She is on Losartan 50mg Monotherapy and her BP is normally in the 120-140 range per chart review. The patient previously endorses being on cholesterol medication but has been stopped. The patient is an active 76 YOF that walks daily and makes it a point to always get her 7000 steps a day and walks nightly. She does not do any other cardiovascular work. She has not had the above symptoms with any activity or while walking even over the past 3 days. She is able to go up and down steps without any dyspnea as well as carrying groceries and laundry. Ptatient initial Troponin I was negative as well as repeat at 3 hour post initial draw. Her ECG is without dynamic changes. Patient has not had stress test that she can recall. Her last ECHO was in 2019 with EF 70-75% with normal LV and no valve abnormalities. Patient will be observed overnight to trend Troponin I, NPO after midnight and stress ECHO in the morning. Patient is hypertensive with her stay in the EMD 160-200/80-100s. She appears anxious and also endorses that she may have been worrying over the past week as her grand kids were in a car accident but are OK. She is anxious about staying overnight as well as plans for tomorrow and "what if she doesn't pass her tests". Allergies Allergy/AdvReac Type Severity Reaction Status Date / Time No Known Allergies Allergy Verified 09/08/21 14:40 Home Medications Medication Instructions Recorded Confirmed Type cholecalciferol (vitamin D3) 50 2,000 unit PO QAM 03/14/18 09/08/21 History mcg (2,000 unit) tablet cyanocobalamin (vitamin B-12) 500 500 mcg PO QAM 03/14/18 09/08/21 History mcg tablet calcium carb 300 mg-D3 800 1 tab PO DAILY 03/15/20 09/08/21 History unit-mag ox 25 mg-mass spectroscopist 0.5 mg-hilario-Zn tablet (Caltrate + D3 Plus Minerals) elderberry fruit 200 mg capsule 200 mg PO DAILY cap 08/12/20 09/08/21 History Probiotic For Women 1 cap PO DAILY 09/08/21 09/08/21 History losartan 50 mg tablet 50 mg PO QAM 09/08/21 09/08/21 History Past Med/Surg History Medical History Anaplasmosis Bronchiectasis without complication Coughing Diverticulosis of colon Elevated AST (SGOT) Encounter for pre-operative examination Fever 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 Hematuria HLD (hyperlipidemia) HTN (hypertension) Hypomagnesemia Keratoconjunctivitis Lyme disease Lyme disease recent, diagnosed 11/2019 Macular degeneration of right eye Multiple pulmonary nodules determined by computed tomography of lung Sjogren's disease SS-B antibody positive Syncope Thrombocytopenia Vitamin D deficiency Weight loss 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 Surgical History History of colonoscopy with polypectomy History of left breast biopsy benign History of tooth extraction all teeth History of total hysterectomy with bilateral salpingo-oophorectomy (BSO) Family History Father Hearing loss Congestive heart failure COPD (chronic obstructive pulmonary disease) Mother Hemorrhagic stroke Hypertension Family history of diabetes mellitus Stroke Sister Epilepsy Ovarian cancer Diabetes Coronary heart disease Breast cancer Carcinoma of tongue Hypertension Family history of diabetes mellitus Brother Brain cancer Hearing loss Neurofibromatosis Hypertension Multiple myeloma Prostate cancer Other Cancer No family history of adverse response to anesthesia Denies family history of Myocardial infarction Colorectal cancer Social History Smoking Status: Never smoker Second Hand Exposure: No (father smoked); Hx Alcohol Use: Yes Alcohol type: wine Alcohol Intake Frequency: 2-3 x/Week Hx Substance Use: No Preferred Language: Taiwanese Communication Ability: Effective Visual Impairment: Limited Hearing Ability: Normal Pet Caretaker Required: No Beliefs That Will Affect Care: None marital status: Current Living Situation: Spouse current occupational status: retired How many Children do You have: 3 How many Children do You have Comment: 3 Other Information That Helps Us Care for You: No Feels Safe at Home: Yes Childhood Exposure to Second-Hand Smoke: Yes caffeine: Yes Dental Care, Regularly: Yes Physical Activity Frequency: Daily Seatbelt Use: always Sunscreen Use: Yes Assistive Devices: Denture - Upper, Denture - Lower and Glasses Review of Systems Review of Systems: REVIEW OF SYSTEMS: Constitutional: No fever, sweats or chills Eyes: No diplopia, no worsening or blurred vision ENT: normal hearing, no trouble swallowing Respiratory: No cough, sputum, dyspnea at rest or on exertion Cardiovascular: (+) chest pressure, tightness, left arm pain, NO palpitations Abdomen: No pain, nausea, vomiting, diarrhea or constipation Musculoskeletal: No joint pain, calf pain, swelling Neurologic: No weakness, numbness/tingling, or balance problems Psychiatric: No anxiety or depression Skin: No rash or itch Physical Exam Physical Exam: PHYSICAL EXAM: General: awake, alert, anxious appearing Head: Normocephalic, atraumatic ENT: PERRLA, EOMI, no pharyngeal exudate, mucous membranes moist Neuro: AAO x 3, speech clear and appropriate, strength intact bilaterally 5/5, sensation intact and equal all extremities and dermatomes, no pronator drift Chest: equal rise and fall of the chest, no accessory muscle use, no heaves or thrills, Clear to auscultation, on room air, Cardiac: Regular rate and rhythm, telemetry reviewed- NSR, skin warm dry, cap refill <3 seconds, peripheral pulses +2 no JVD, no murmur, no edema GI: NABS x 4 quadrants, soft, nontender to palpation, no rebound, guarding or tenderness : Spontaneously voiding, no pain, no CVA tenderness, Extremities: Normal inspection, no peripheral edema or erythema, calfs nontender to palpation Psych: anxious appearing Skin: no rash or erythema Results & Data Results & Data ([facility]) Vital Signs (Past 12 Hours) Vital Signs Temp Pulse Resp BP Pulse Ox 09/08/21 15:00 64 14 169/86 H 09/08/21 14:30 68 13 162/89 H 09/08/21 14:19 71 18 09/08/21 13:29 36.6 C 85 17 200/99 H 98 Laboratory Results Abnormal lab results 09/08/21 09/08/21 Range/Units 14:10 14:10 WBC 4.42 L (4.8-10.8) K/uL BUN/Creatinine Ratio 20.6 H (10-20) Glucose 100 H (70-99(Fasting)) mg/dl Lipase 10 L (11-82) U/L Diagnostic Findings Chest X-Ray 09/08/21 13:33 XR chest 1V portable CLINICAL HISTORY: Atypical chest pain. COMPARISON STUDY: Chest CT February 28, 2021. FINDINGS: Lung volumes are normal. The right apical opacities are similar to prior exams. There is no pneumothorax or pleural effusion. Cardiac size is normal. Mediastinal contours are normal. There is no evidence for pulmonary edema. IMPRESSION: No acute cardiopulmonary findings. No significant change in several right apical opacities which may reflect scarring. ACT 112: Negative or not required by law. Electronically signed by: Quan Robins M.D. 09/08/2021 1:51 PM Medications Administered Home Medications cholecalciferol (vitamin D3) 50 mcg (2,000 unit) tablet 2,000 unit PO QAM 03/14/18 [History Confirmed 09/08/21] cyanocobalamin (vitamin B-12) 500 mcg tablet 500 mcg PO QAM 03/14/18 [History Confirmed 09/08/21] calcium carb 300 mg-D3 800 unit-mag ox 25 mg-mass spectroscopist 0.5 mg-hilario-Zn tablet (Caltrate + D3 Plus Minerals) 1 tab PO DAILY 03/15/20 [History Confirmed 09/08/21] elderberry fruit 200 mg capsule 200 mg PO DAILY cap 08/12/20 [History Confirmed 09/08/21] Probiotic For Women 1 cap PO DAILY 09/08/21 [History Confirmed 09/08/21] losartan 50 mg tablet 50 mg PO QAM 09/08/21 [History Confirmed 09/08/21] Discontinued Medications Aspirin (Aspirin Chew 324 Mg) 324 mg PO NOW STA Stop: 09/08/21 15:13 Last Admin: 09/08/21 15:32 Dose: 324 mg Documented by: [id number] ECG Additional Comments: Normal sinus rhythm Normal ECG When compared with ECG of 09-NOV-2019 16:05, No significant change was found Confirmed by Christiano Rosario ([id number]) on 09/08/2021 3:56:21 PM Code Status & VTE Plan Code Status CODE: FULL VTE: SCDS, ambulation, asa VTE Prophylaxis Plan VTE Prophylaxis will be ordered: Yes Supervising Physician Co-Signing Physician Notes Patient seen and examined at bedside. During face to face encounter, obtained a physical examination and a history of present illness. Reviewed above note and agree with it. D/W admission plan with LES Castillo. Patient will be admitted for chest pain. will obtain troponin and check cardiac stress test in am PG Care Time/CCT Total # of Minutes Spent Total Time Spent with Patient: Total time spent is greater than 50% in coordination of care (as documented) at patient's floor/unit and/or counseling patient: Coding Level of Care Code INT OBSERVATION CARE 70M LVL 3 Diagnoses Chest pain R07.9 Chest pain type: unspecified HTN (hypertension) I10 Hypertension type: unspecified Sjogren's disease M35.00 Multiple pulmonary nodules determined by computed tomography of lung R91.8 Bronchiectasis without complication J47.9 Hyperlipidemia E78.5 Hyperlipidemia type: unspecified (1) Hyperlipidemia Hyperlipidemia type: unspecified Qualified Code(s): E78.5 - Hyperlipidemia, unspecified (2) Chest pain Chest pain type: unspecified Qualified Code(s): R07.9 - Chest pain, unspecified (3) HTN (hypertension) Hypertension type: unspecified Qualified Code(s): I10 - Essential (primary) hypertension
[2021-09-08] MEDS ORDERED: FAMOTIDINE 20 MG TAB PO ONE (19:49)
[2021-09-08] MEDS ORDERED: LABETALOL HCL IV 5 MG/ML 20ML IV PRN (19:49)
[2021-09-08] MEDS ORDERED: ACETAMINOPHEN 325 MG TAB PO PRN (19:49)
[2021-09-09 05:39] LABS: Basophils # (auto) 0.02 K/uL (0-0.2); Basophils % (auto) 0.5 %; Eosinophils # (auto) 0.09 K/uL (0-0.5); Eosinophils % (auto) 2.2 %; Hematocrit (blood only) 37.2 % (37-47); Hemoglobin 12.4 g/dL (12.0-16.0); Lymphocytes # (auto) 1.56 K/uL (1.2-3.4); Lymphocytes % (auto) 37.7 %; Mean Corpuscular Hemoglobin 30.2 pg (25-34); Mean Corpuscular Hgb Conc 33.3 g/dL (32-36); Mean Corpuscular Volume 90.7 fL (80-100); Mean Platelet Volume 9.3 fL (7.4-10.4); Monocytes % (auto) 12.1 %; Neutrophils # (auto) 1.97 K/uL (1.4-6.5); Neutrophils % (auto) 47.5 %; Platelet Count 162 K/uL (130-400); RDW Coefficient of Variation 13.7 % (11.5-14.5); RDW Standard Deviation 45.4 fL (36.4-46.3); White Blood Count 4.14 K/uL (4.8-10.8)
[2021-09-09 06:15] LABS: Troponin I < 0.03 ng/ml (0-0.04)
[2021-09-09 06:16] LABS: Anion Gap 4 (3-11); BUN Creatinine Ratio 21.9 (10-20); Blood Urea Nitrogen 14 mg/dl (6-23); Calcium 8.9 mg/dl (8.5-10.1); Carbon Dioxide 29 mmol/L (21-32); Chloride 107 mmol/L (98-107); Chol HDL Ratio 2.9 (0-5); Cholesterol 188 mg/dl (0-200); Creatinine Clr Calc Pharmacy 59.1 ml/min; Est GFR (African American) 100.5 ml/min; Est GFR (Non-African American) 86.7 ml/min; Glucose 92 mg/dl (70-99(Fasting)); HDL Cholesterol 65 mg/dl; LDL Cholesterol Calculated 113 mg/dl; Magnesium 1.9 mg/dl (1.7-2.4); Potassium 3.6 mmol/L (3.5-5.1); Sodium 140 mmol/L (136-145); Triglycerides 52 mg/dl (0-150); VLDL Cholesterol 10 mg/dl (0-30)
--- NOTE | 2021-09-09 09:51 | Cardiology Consultation ---
Date of Consultation September 09, 2021 Assessment & Plan (1) Chest pain: (2) Hypertension: (3) Hyperlipidemia: (4) Abnormal stress test: 1. Chest discomfort: In some ways her chest discomfort is suggestive of angina (the pressure sensation in the left arm symptoms) however the fact that it occurs at rest and did not occur with exercise it is a little unusual. She did not get chest discomfort with walking on the treadmill either. It is possible that the chest discomfort is not due to coronary artery disease, nevertheless her echocardiogram is very abnormal with stress indicative of coronary artery disease. 2. Hypertension: Her blood pressure is quite elevated, I think we should get it under better control and it sounds that she has high blood pressure even at home measurements. I am going to add beta-blockade. 3. Hyperlipidemia: Her cholesterol is elevated, not terribly so, but in a range where we should have her on a statin. Apparently she was on a statin before but discontinued it, it does not sound as though she had side effects. I will add a statin. 4. Abnormal stress test: Her stress test is very abnormal both the electrocardiographic portion and the echocardiographic portion and is indicative of significant coronary artery disease. I think she should have a catheterization, if her chest discomfort is due to coronary disease then she has rest symptoms and that would be classified as unstable angina. She does not have evidence of baseline wall motion abnormalities so she has not had myocardial damage, this could probably be avoided with intervention. I would recommend catheterization today, she is going to think about it and discuss it with her . History of Present Illness Reason for Consultation: Chest discomfort Attending Physician: See Sargent MD History of Present Illness This is a 76-year-old woman with a history of hypertension, dyslipidemia and Sjogren's disease. She has had weight loss although her weight has stabilized. She presented to the emergency room on September 08, 2021 with chest discomfort which has been occurring over several days. She describes just several episodes of chest discomfort, perhaps 1/day, which she describes as a heaviness in her chest with possible tingling in her arm (although she has had arm tingling at other times without chest discomfort). She is a little unclear on the duration but it sounds as though it is minutes not hours. Before she came into the emergency room she was having discomfort which occurred at rest, she started to take her daily walk and the symptoms resolved and did not come back with walking. She does note some elevated blood pressure, especially in the emergency room. She did not have any other associated symptoms. In the emergency room she was extremely hypertensive, her initial electrocardiogram was normal. Her electrocardiogram this morning shows some nonspecific ST-T abnormalities. Cardiac enzymes x3 are nondetectable. I did supervise her stress test this morning, she did not have chest discomfort during the test but it was markedly abnormal in both the electrocardiographic findings as well as the echocardiogram which showed apical hypokinesis. Allergies Allergy/AdvReac Type Severity Reaction Status Date / Time No Known Allergies Allergy Verified 09/08/21 14:40 Home Medications Medication Instructions Recorded Confirmed Type cholecalciferol (vitamin D3) 50 2,000 unit PO QAM 03/14/18 09/08/21 History mcg (2,000 unit) tablet cyanocobalamin (vitamin B-12) 500 500 mcg PO QAM 03/14/18 09/08/21 History mcg tablet calcium carb 300 mg-D3 800 1 tab PO DAILY 03/15/20 09/08/21 History unit-mag ox 25 mg-helicopter engineer 0.5 mg-hilario-Zn tablet (Caltrate + D3 Plus Minerals) elderberry fruit 200 mg capsule 200 mg PO DAILY cap 08/12/20 09/08/21 History Probiotic For Women 1 cap PO DAILY 09/08/21 09/08/21 History losartan 50 mg tablet 50 mg PO QAM 09/08/21 09/08/21 History Patient History Medical History Anaplasmosis Bronchiectasis without complication Coughing Diverticulosis of colon Elevated AST (SGOT) Encounter for pre-operative examination Fever 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 Hematuria HLD (hyperlipidemia) HTN (hypertension) Hypomagnesemia Keratoconjunctivitis Lyme disease Lyme disease recent, diagnosed 11/2019 Macular degeneration of right eye Multiple pulmonary nodules determined by computed tomography of lung Sjogren's disease SS-B antibody positive Syncope Thrombocytopenia Vitamin D deficiency Weight loss 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 Surgical History History of colonoscopy with polypectomy History of left breast biopsy benign History of tooth extraction all teeth History of total hysterectomy with bilateral salpingo-oophorectomy (BSO) Family History Father Hearing loss Congestive heart failure COPD (chronic obstructive pulmonary disease) Mother Hemorrhagic stroke Hypertension Family history of diabetes mellitus Stroke Sister Epilepsy Ovarian cancer Diabetes Coronary heart disease Breast cancer Carcinoma of tongue Hypertension Family history of diabetes mellitus Brother Brain cancer Hearing loss Neurofibromatosis Hypertension Multiple myeloma Prostate cancer Other Cancer No family history of adverse response to anesthesia Denies family history of Myocardial infarction Colorectal cancer Social History Smoking Status: Never smoker Second Hand Exposure: No (father smoked); Hx Alcohol Use: Yes Alcohol type: wine Alcohol Intake Frequency: 2-3 x/Week Hx Substance Use: No Preferred Language: German Communication Ability: Effective Visual Impairment: Limited Hearing Ability: Normal Is Technician Required: No Beliefs That Will Affect Care: None marital status: Current Living Situation: Spouse current occupational status: retired How many Children do You have: 3 How many Children do You have Comment: 3 Other Information That Helps Us Care for You: No Feels Safe at Home: Yes Childhood Exposure to Second-Hand Smoke: Yes caffeine: Yes Dental Care, Regularly: Yes Physical Activity Frequency: Daily Seatbelt Use: always Sunscreen Use: Yes Assistive Devices: Denture - Upper, Denture - Lower and Glasses Review of Systems Review of Systems: All systems reviewed & are unremarkable except as noted in HPI & below Physical Exam Physical Exam: Constitutional: Alert, cooperative and in no distress. HEENT: Unremarkable Neck: No jugular venous distention, carotid pulses are normal and equal bilaterally without bruits. Pulmonary: Clear to auscultation bilaterally. Cardiac: Regular rhythm with no murmur, gallop or rub. Abdomen: Soft, nontender with normal bowel sounds. Extremities: No edema. Distal pulses intact. Neurologic: No focal findings. Gait is steady. Skin: No rash, ecchymoses or petechiae. Results & Data ([facility]) Vital Signs (Past 12 Hours) Vital Signs Temp Pulse Pulse Pulse Resp BP Pulse Ox 09/09/21 07:47 36.5 C 60 16 150/80 H 96 09/09/21 07:30 64 09/09/21 02:58 36.5 C 59 L 18 124/68 97 09/08/21 23:16 36.5 C 63 20 155/79 H 96 Laboratory Results Cardiac Enzymes 09/08/21 09/08/21 09/08/21 Range/Units 14:10 16:10 22:11 AST 26 (13-39) U/L Troponin I < 0.03 < 0.03 < 0.03 (0-0.04) ng/ml 09/09/21 Range/Units 05:31 AST (13-39) U/L Troponin I < 0.03 (0-0.04) ng/ml Lipids 09/09/21 Range/Units 05:31 Triglycerides 52 (0-150) mg/dl Cholesterol 188 (0-200) mg/dl HDL Cholesterol 65 mg/dl Cholesterol/HDL Ratio 2.9 (0-5) CBC 09/08/21 09/09/21 Range/Units 14:10 05:31 WBC 4.42 L 4.14 L (4.8-10.8) K/uL RBC 4.32 4.10 L (4.2-5.4) M/uL Hgb 13.3 12.4 (12.0-16.0) g/dL Hct 39.3 37.2 (37-47) % Plt Count 178 162 (130-400) K/uL Neut # (Auto) 2.64 1.97 (1.4-6.5) K/uL Lymph # (Auto) 1.40 1.56 (1.2-3.4) K/uL Treasure # (Auto) 0.31 0.50 (0.11-0.59) K/uL Eos # (Auto) 0.04 0.09 (0-0.5) K/uL Baso # (Auto) 0.02 0.02 (0-0.2) K/uL Comprehensive Metabolic Panel 09/08/21 09/09/21 Range/Units 14:10 05:31 Sodium 141 140 (136-145) mmol/L Potassium 3.6 3.6 (3.5-5.1) mmol/L Chloride 105 107 (98-107) mmol/L Carbon Dioxide 31 29 (21-32) mmol/L BUN 14 14 (6-23) mg/dl Creatinine 0.68 0.64 (0.6-1.2) mg/dl Glucose 100 H 92 (70-99(Fasting)) mg/dl Calcium 9.2 8.9 (8.5-10.1) mg/dl AST 26 (13-39) U/L ALT 17 (7-52) U/L Alkaline Phosphatase 66 (34-104) U/L Total Protein 6.9 (6.0-8.3) gm/dl Albumin 4.2 (3.4-5.0) gm/dl Intake and Output 09/08/21 09/09/21 09/09/21 22:59 06:59 14:59 Intake Total 300 / 300 0 / 300 0 / 0 Balance 300 / 300 0 / 300 0 / 0 Intake: Oral 300 / 300 0 / 300 0 / 0 Other: Other Intake Source NPO Patient is NPO Weight 51.6 kg Weight Measurement Method Standing Scale Diagnostic Findings Telemetry: Sinus rhythm in the 70s, no significant arrhythmia PG Care Time/CCT Total # of Minutes Spent Total Time Spent with Patient: Total time spent is greater than 50% in coordination of care (as documented) at patient's floor/unit and/or counseling patient: Coding Level of Care Code 43671 Initial Inpt Care Lvl 3 Diagnoses Chest pain R07.9 Chest pain type: unspecified Hypertension I10 Hypertension type: essential hypertension Hyperlipidemia E78.5 Hyperlipidemia type: unspecified Abnormal stress test R94.39 (1) Chest pain Chest pain type: unspecified Qualified Code(s): R07.9 - Chest pain, unspecified (2) Hypertension Hypertension type: essential hypertension Qualified Code(s): I10 - Essential (primary) hypertension (3) Hyperlipidemia Hyperlipidemia type: unspecified Qualified Code(s): E78.5 - Hyperlipidemia, unspecified
[2021-09-09 10:19] LABS: Estimated Average Glucose 123 mg/dl; Hemoglobin A1C 5.9 % (4.5-5.6)
[2021-09-09] MEDS: ASPIRIN 81 MG ECTAB PO SCH (10:58)
[2021-09-09] MEDS: LOSARTAN POTASSIUM 50 MG TAB PO SCH (10:58)
[2021-09-09] MEDS: CEROVITE ADV FORMULA TAB PO SCH (10:58)
--- NOTE | 2021-09-09 11:32 | XCELERA ---
[id number]
[2021-09-09] MEDS: METOPROLOL TARTRATE 50 MG TAB PO SCH ×2 (12:18→17:15)
[2021-09-09] MEDS ORDERED: LIDOCAINE 1% LOCAL 20 ML VIAL ONE ×2 (13:00→15:51)
[2021-09-09] MEDS ORDERED: fentaNYL citrate 100 MCG/2 ML VIAL ONE (13:29)
[2021-09-09] MEDS ORDERED: niCARdipine HCL INJ 2.5 MG/ML 10 ML AMP ONE (13:29)
[2021-09-09] MEDS ORDERED: MIDAZOLAM HCL 1 MG/ML 2ML VIAL ONE (13:29)
[2021-09-09] MEDS ORDERED: HEPARIN (PORCINE) 1000 UNIT/ML 10 ML (CATH LAB USE ONLY) ONE (13:29)
[2021-09-09] MEDS ORDERED: NITROGLYCERIN/D5W 100MCG/ML 20ML SYR ONE (13:30)
[2021-09-09] MEDS ORDERED: ATROPINE SULFATE 0.1 MG/ML 10ML SYR IV ONE (14:04)
[2021-09-09] MEDS ORDERED: CLOPIDOGREL BISULFATE 300 MG TAB ONE (14:42)
--- NOTE | 2021-09-09 15:03 | Post Anesthesia Assessment ---
Date of Service September 09, 2021 Post Sedation Assessment Vital Signs Temp Pulse Pulse Pulse Resp BP BP 09/09/21 14:50 68 18 124/64 09/09/21 13:06 78 20 178/82 H 09/09/21 12:33 97.7 F 79 14 178/92 H 09/09/21 07:47 97.7 F 60 16 150/80 H 09/09/21 07:30 64 09/09/21 02:58 97.7 F 59 L 18 124/68 09/08/21 23:16 97.7 F 63 20 155/79 H 09/08/21 19:45 98.1 F 82 18 183/79 H 09/08/21 18:30 66 18 155/74 H 09/08/21 18:00 67 16 165/75 H 09/08/21 17:30 73 16 171/76 H 09/08/21 17:00 72 25 H 167/87 H 09/08/21 16:31 80 09/08/21 16:30 80 15 09/08/21 16:08 87 Pulse Ox 09/09/21 14:50 94 09/09/21 13:06 98 09/09/21 12:33 97 09/09/21 07:47 96 09/09/21 07:30 09/09/21 02:58 97 09/08/21 23:16 96 09/08/21 19:45 96 09/08/21 18:30 09/08/21 18:00 09/08/21 17:30 09/08/21 17:00 09/08/21 16:31 09/08/21 16:30 09/08/21 16:08 Recovery Score Activity: Moves 4 extremities Respiration: Deep Breath/Cough Circulation: +/-20% PreAnes Value Consciousness: Fully Awake Oxygen Saturation: > 92% On Room Air Post Anesthesia Score: 10 Discharge Sedation Level of Care: Fast Track Phase II Post Sedation Plan On clinical assessment, the patient appears to have tolerated the sedation without complications. Patient is recovering as anticipated. Patient will continue to be monitored by nursing and may be discharged when sedation discharge criteria are met per below protocol. Upon Completions of procedure up to 15 minutes continue every 5 minute vital signs and the P.A.R. score; then discharge to a Phase I or Fast Track to Phase II per the following guidelines: * Discharge Patient to appropriate Phase II area if PAR is 8 or greater or return to pre- procedure baseline. The post - procedure orders will be as directed. * If PAR score is less than 8 or not return to pre-procedure baseline then patie nt will follow Phase I monitoring till PAR is reached for Phase II. The Phase I may be done in procedure room or may call to secure a Phase I area. * If naloxone or flumazenil are used for reversal, hold in Phase I for continued monitoring from when last reversal dose was given for a minimum of 60 minutes or longer pending the nurse and/or physician discretion of patient condition before discharge to Phase II. Please call the Sedation Physician to re-evaluate and complete post-note for discharge to Phase II area. Do NOT discharge from procedure sedation or Phase 1 until post- sedation ev aluation note is complete by procedure /sedation MD Sedation Discharge Instructions to be given to the patient at discharge to home.
[2021-09-09] MEDS ORDERED: NITROGLYCERIN SL 0.4 MG/TAB TAB SL PRN (15:04)
[2021-09-09] MEDS ORDERED: SODIUM CHLORIDE 0.9% 1000ML 1,000 ML IV SCH (15:15)
--- NOTE | 2021-09-09 15:16 | Cardiac Catheterization ---
[facility] Data: Road Worker Cardiac Status Clinical evaluation leading to the procedure CAD Presenation: Positive Stress Test Diagnostic Physicians Name: Fernandez Valdez MD Closure Device Recommendations: PCI without planned CABG Cardiac Cath Procedure Full Procedure Date September 09, 2021 Pre-Procedure Diagnosis Pre-Procedure Diagnosis: Positive Stress Test AUC Score AUC Score: 7 Post-Procedure Diagnosis Post-Procedure Diagnosis: Severe CAD, Successful PCI and Normal Intracardiac Pressures Procedure(s) Performed Procedure(s) Performed: Coronary Angiography, Left Heart Cath, Drug Eluting Stent and IVUS Idea Man Fernandez Valdez MD Vegetable Farming Supervisor(s) Showers Estimated Blood Loss Estimated Blood Loss: 10 Medication(s) Medication(s): Clopidogrel, Fentanyl, Heparin, Lidocaine 1%, Nicardipine, Nitroglycerin and Versed Summary of Findings Indication: High risk abnormal stress test Access: 6 Fr right radial artery Catheters: [place], EBU 3.5 guide Findings: LM -normal caliber, no significant disease LAD -medium caliber, 70 to 80% proximal, 90% earlymid stenosis just before bifurcation with medium D2. Remainder of LAD without significant disease and wraps around apex. D2 without disease Circumflex -medium caliber, gives off medium OM1. No significant disease. RCA -dominant, medium caliber, angiographically normal LVEDP -9 -- PCI -- Antithrombotic therapy: Heparin, clopidogrel Procedure: Left main cannulated with EBU 3.5 guide Pre-procedure flow SIENNA SIENNA-3 BMW wire passed across LAD lesions into distal vessel Prowater wire placed into circumflex [place] IVUS catheter placed into mid LAD. Pullback revealed severe, minimally calcified earlymid disease (>80%, MLA 2.5 mm) with severe LAD disease extending back to ostium. No significant left main disease Proximal, mid LAD lesions predilated with 3.0 compliant balloon Mid LAD lesion stented with 3.0 x 18 mm Xience drug-eluting stent Ostial/proximal LAD stented with 3.5 x 12 mm Xience drug-eluting stent Repeat IVUS showed well apposed stents with no apparent edge complications. Both stents underexpanded. Stents post-dilated with 4.0 noncompliant balloon IC vasodilators administered for spasm Post procedure SIENNA 3 flow, stents well expanded with minimal residual stenosis and no apparent cardiac complications. Arterial Closure: TR band Summary: 1. Severe single vessel coronary artery disease -75% proximal LAD, 90% earlymid LAD 2. Normal intracardiac filling pressure 3. Successful PCI of proximal and mid LAD with 2 nonoverlapping drug-eluting stents (3.5 x 12, 3.0 x 18 Xience; postdilated with 4.0 NC). Recommendations: To PCU for continued monitoring Loaded with clopidogrel [address] Worker Continue dual-antiplatelet therapy for at least 6 months Continue statin, and ASCVD risk factor modification Consult cardiac Rehab Hemodynamics Rest Ao:: 120/57/84 Final Ao: 131/54/88 LV: 117/9 Recommendations Recommendations: PCI without planned CABG Specimens Specimens: None Radiation Exposure (mGy) 853 Contrast (mls) 90 Anesthesia Moderate 4723-9431 Procedural Complication(s) None Disposition PCU I attest to the content of the Intraoperative Record and any orders documented therein. Any exceptions are noted below. [facility] Card Cath Procedure Codes Cardiac Catheterization Procedure 1: Cardiovascular Cath Procedures: 04168 Coronaries and LHC (+/-LV) Therapeutic Services & Ancillary Proc Procedure 1: Cardiovascular Tx and Anc Procedures: 31021 IV Ultrasound (Coronary or Gr aft) Moderate Sedation Procedure 1: Sedation/Anesthesia: 69810 Mod Sedation by the same physician;Init15 Min Child Age 5 & Up Procedure 2: Sedation/Anesthesia: 71454 Mod Sedation by the same physician; Ea [id number] Minutes Stenting Procedure 1: Cardiovascular Stent Procedures: 65748 Perc transcatheter placement of intracoronary stent(s), with ang PG Care Time/CCT Total # of Minutes Spent Total Time Spent with Patient: Total time spent is greater than 50% in coordination of care (as documented) at patient's floor/unit and/or counseling patient:
--- NOTE | 2021-09-09 17:38 | Hospitalist Progress Note ---
Date of Service September 09, 2021 Assessment & Plan (1) Chest pain: Plan: High risk stress test is seen, and left heart cath on 09/09/2021 Severe single vessel coronary artery disease-75% proximal LAD, 90% earlymid LAD Successful PCI of proximal and mid LAD with 2 nonoverlapping drug-eluting stents (3.5 x 12, 3.0 x 18 Xience; postdilated with 4.0 NC). Loaded with clopidogrel 600 mg in Take Off Man Continue dual-antiplatelet therapy for at least 6 months Continue statin, and ASCVD risk factor modification Consult cardiac Rehab (2) HTN (hypertension): Plan: - Losartan 50mg at home- will give an additional 25mg PO now - Labetolol PRN if SBP >180 and/or DBP >95 - Previously well controlled- ? Anxiety related - BUN/CULTURAL HISTORIAN stable (3) Hyperlipidemia: Plan: High Intensity statin to reduce ASCVD risk (4) Sjogren's disease: Plan: Has not been on any immunotherapy- follows with rheumatology BREANNA positive 10.20 and 3.20 SSB/LA positive 10.20 and 3.20 (5) Multiple pulmonary nodules determined by computed tomography of lung: Plan: Follows with Pulmonary- stable with no increase since 2019- last seen 02/22 (6) Bronchiectasis without complication: Plan: As above- PFTs done 08/22- normal without bronchodilator response mild DLCO reduction- but interpreted as corrected. Admission and Anticipated Discharge Date Admission Date: September 08, 2021 Subjective pt seen for extended visit today for pre test discussion and post cath eval, pt is stable post cath some hematoma at TR band, otherwise tolerated LHC with LAD DEVEN x 2 well family at the bedside and updated Review of Systems Review of Systems: Mild distress and fatigue no headache, no visual changes no speech or swallowing issues no further chest pain, pressure or palpitations no shortness of breath, cough or wheezes no abdominal pain, nausea or vomiting, diarrhea or constipation no dysuria, hematuria or frequency no focal joint pain or swelling no back pain, CVA tenderness or radicular pain no bruising, bleeding or rashes no focal signs of weakness or numbness or altered sensation no complaints of anxiety or depression.. Physical Exam Physical Exam: The patient appeared well nourished and normally developed. Vital signs as documented. Head exam is normocephalic atraumatic Neck is without JVD, thyromegaly, or carotid bruits. Lungs are clear to auscultation, no focal loss of breath sounds Cardiac exam, Rhythm is regular.. No murmurs, rubs or gallops. Abdominal exam reveals normal bowel sounds, soft non tender, no masses Extremities right wrist is mildly dusky but there is good capillary refill sensations intact TR bands were placed Neurologic exam is alert and oriented, no focal loss of strength or sensation Skin is without bruises or rashes Psychologically is without concerns for anxiety or depression.. Results & Data Results & Data ([facility]) Vital Signs (Past 12 Hours) Vital Signs Temp Pulse Pulse Pulse Resp BP Pulse Ox 09/09/21 16:49 97.7 F 64 14 178/75 H 97 09/09/21 16:19 97.9 F 59 L 14 131/70 96 09/09/21 15:49 98.1 F 57 L 14 129/81 96 09/09/21 15:33 97.7 F 57 L 15 126/66 96 09/09/21 15:19 97.5 F L 56 L 16 125/65 97 09/09/21 15:05 68 18 128/64 95 09/09/21 14:50 68 18 124/64 94 09/09/21 13:06 78 20 178/82 H 98 09/09/21 12:33 97.7 F 79 14 178/92 H 97 09/09/21 07:47 97.7 F 60 16 150/80 H 96 09/09/21 07:30 64 PG Care Time/CCT Total # of Minutes Spent Total Time Spent with Patient: Total time spent is greater than 50% in coordination of care (as documented) at patient's floor/unit and/or counseling patient: Coding Level of Care Code 10203 Subseq Hosp Care Lvl 3 Diagnoses Chest pain R07.9 Chest pain type: unspecified HTN (hypertension) I10 Hypertension type: unspecified Hyperlipidemia E78.5 Hyperlipidemia type: unspecified Sjogren's disease M35.00 Multiple pulmonary nodules determined by computed tomography of lung R91.8 Bronchiectasis without complication J47.9 (1) Chest pain Chest pain type: unspecified Qualified Code(s): R07.9 - Chest pain, unspecified (2) HTN (hypertension) Hypertension type: unspecified Qualified Code(s): I10 - Essential (primary) hypertension (3) Hyperlipidemia Hyperlipidemia type: unspecified Qualified Code(s): E78.5 - Hyperlipidemia, unspecified
[2021-09-09] MEDS ORDERED: ONDANSETRON INJ 2 MG/ML 2 ML VIAL IV PRN (19:14)
[2021-09-10 07:09] LABS: Basophils # (auto) 0.02 K/uL (0-0.2); Basophils % (auto) 0.3 %; Eosinophils # (auto) 0.02 K/uL (0-0.5); Eosinophils % (auto) 0.3 %; Hematocrit (blood only) 34.1 % (37-47); Hemoglobin 11.6 g/dL (12.0-16.0); Immature Granulocytes # (auto) 0.01 K/uL (0.00-0.02); Immature Granulocytes % (auto) 0.1 %; Lymphocytes # (auto) 2.08 K/uL (1.2-3.4); Mean Corpuscular Hemoglobin 30.4 pg (25-34); Mean Corpuscular Volume 89.5 fL (80-100); Mean Platelet Volume 9.5 fL (7.4-10.4); Monocytes # (auto) 0.76 K/uL (0.11-0.59); Monocytes % (auto) 10.6 %; Neutrophils # (auto) 4.29 K/uL (1.4-6.5); Neutrophils % (auto) 59.7 %; Platelet Count 169 K/uL (130-400); RDW Coefficient of Variation 13.8 % (11.5-14.5); RDW Standard Deviation 45.6 fL (36.4-46.3); Red Blood Count 3.81 M/uL (4.2-5.4); White Blood Count 7.18 K/uL (4.8-10.8)
[2021-09-10 08:00] LABS: BUN Creatinine Ratio 26.5 (10-20); Calcium 8.6 mg/dl (8.5-10.1); Creatinine Clr Calc Pharmacy 55.7 ml/min; Est GFR (African American) 98.5 ml/min; Magnesium 1.8 mg/dl (1.7-2.4); Potassium 3.5 mmol/L (3.5-5.1)
[2021-09-10] MEDS: LOSARTAN POTASSIUM 50 MG TAB PO SCH (08:28)
[2021-09-10] MEDS: ASPIRIN 81 MG ECTAB PO SCH (08:28)
[2021-09-10] MEDS: CEROVITE ADV FORMULA TAB PO SCH (08:28)
[2021-09-10] MEDS ORDERED: CLOPIDOGREL BISULFATE 75 MG TAB PO SCH (09:00)
[2021-09-10] MEDS ORDERED: ATORVASTATIN 40 MG TAB PO SCH (09:00)
[2021-09-10] MEDS ORDERED: METOPROLOL TARTRATE 25 MG TAB PO SCH (09:00)
--- NOTE | 2021-09-10 09:54 | Cardiology Progress Note ---
Date of Service September 10, 2021 Assessment & Plan (1) Coronary artery disease: Plan: --severe single vessel disease --status post PCI of proximal, mid LAD with 2 non overlapping DEVEN 2. Preserved LV function 3. Dyslipidemia 4. Hypertension 5. Right radial access site hematoma --improved Patient doing well today post PCI of proximal, mid LAD yesterday. No recurrent chest or arm pain, has been up walking without limiting cardiac symptoms. On exam appears well perfused without signs of heart failure. Right radial access site hematoma improved today. OK for discharge from cardiac standpoint. Recommend the following: --Continue DAPT with aspirin, clopidogrel for minimum 6 months --Continue high intensity statin --Continue metoprolol tartrate and losartan --Will refer to cardiac rehab We will arrange to see the patient in our office in 1 week. Admission and Anticipated Discharge Date Admission Date: September 08, 2021 Subjective Mrs. Fernandez is doing well this morning and has no acute complaints. Yesterday underwent successful PCI of proximal and mid LAD with 2 non-overlapping DEVEN. Right radial access site hematoma sore but improved. Finger numbness/tingling resolved. No recurrent chest or arm pain. Was up walking without exertional symptoms. No orthopnea or PND. Tele reviewed- sinus rhythm, no events Physical Exam Physical Exam: General: No acute distress, comfortable. HEENT: Head is normal. Sclerae anicteric. Lungs: Clear to auscultation bilaterally without rales, rhonchi or wheezes. Cardiac: Regular rate and rhythm. S1-S2 normal. No appreciable murmur, gallop or rub. Extremities/vascular: --Well perfused. No peripheral edema. --Radial, DP and PT pulses 2+ bilaterally --Right radial access site hematoma with ecchymosis extending mid forearm. Soft, largely nontender. Distal pulse, sensation intact --No hyperpigmentation, lipodermatosclerosis or ulcers Neurologic: Nonfocal Psychiatric: Affect appropriate. Alert and oriented. Results & Data ([facility]) Vital Signs (Past 12 Hours) Vital Signs Temp Pulse Resp BP Pulse Ox 09/10/21 07:33 36.6 C 57 L 16 118/61 96 09/10/21 04:06 36.8 C 61 18 99/56 L 96 09/09/21 23:55 37.0 C 68 16 105/57 L 95 Laboratory Results Laboratory Results - last 24 hr 09/09/21 09/09/21 09/09/21 05:31 14:10 14:33 WBC RBC Hgb Hct MCV MCH MCHC RDW Std Deviation RDW Coeff of Asmita Plt Count MPV Immature Gran % (Auto) Neut % (Auto) Lymph % (Auto) [place] % (Auto) Eos % (Auto) Baso % (Auto) Neut # (Auto) Lymph # (Auto) [place] # (Auto) Eos # (Auto) Baso # (Auto) Immature Gran # (Auto) Activ Coag Time Kaolin 368 H 321 H Sodium Potassium Chloride Carbon Dioxide Anion Gap BUN Creatinine Est Cr Clr Drug Dosing Est GFR ( Amer) Est GFR (Non-Af Amer) BUN/Creatinine Ratio Glucose Estimat Average Glucose 123 Hemoglobin A1c 5.9 H Calcium Magnesium 09/10/21 09/10/21 06:25 06:25 WBC 7.18 RBC 3.81 L Hgb 11.6 L Hct 34.1 L MCV 89.5 MCH 30.4 MCHC 34.0 RDW Std Deviation 45.6 RDW Coeff of Asmita 13.8 Plt Count 169 MPV 9.5 Immature Gran % (Auto) 0.1 Neut % (Auto) 59.7 Lymph % (Auto) 29.0 [place] % (Auto) 10.6 Eos % (Auto) 0.3 Baso % (Auto) 0.3 Neut # (Auto) 4.29 Lymph # (Auto) 2.08 [place] # (Auto) 0.76 H Eos # (Auto) 0.02 Baso # (Auto) 0.02 Immature Gran # (Auto) 0.01 Activ Coag Time Kaolin Sodium 139 Potassium 3.5 Chloride 106 Carbon Dioxide 25 Anion Gap 8 BUN 18 Creatinine 0.68 Est Cr Clr Drug Dosing 55.7 Est GFR ( Amer) 98.5 Est GFR (Non-Af Amer) 85.0 BUN/Creatinine Ratio 26.5 H Glucose 84 Estimat Average Glucose Hemoglobin A1c Calcium 8.6 Magnesium 1.8 PG Care Time/CCT Total # of Minutes Spent Total Time Spent with Patient: Total time spent is greater than 50% in coordination of care (as documented) at patient's floor/unit and/or counseling patient: Coding Level of Care Code 85338 Subseq Hosp Care Lvl 3 Diagnoses Coronary artery disease I25.10
--- NOTE | 2021-09-10 12:36 | Electrocardiogram Report ---
Test Reason : Blood Pressure : / mmHG Vent. Rate : 067 BPM Atrial Rate : 067 BPM P-R Int : 158 ms QRS Dur : 086 ms QT Int : 384 ms P-R-T Axes : 070 052 059 degrees QTc Int : 405 ms Normal sinus rhythm Nonspecific T wave abnormality Abnormal ECG When compared with ECG of 08-SEP-2021 14:04, Nonspecific T wave abnormality now evident in Anterolateral leads Confirmed by Frank Cheng ([id number]) on 09/10/2021 12:36:29 PM Referred By: REFERRED SELF Confirmed By:Frank Cheng
--- NOTE | 2021-09-10 14:22 | Discharge Summary ---
Date of Service September 10, 2021 Admission HPI Per Admitting Provider 76 YOF with past medical history of: Sjogren's (not on therapy), HTN, stable pulmonary nodules, bronchiectasis. Patient comes to the [facility] today for evaluation for chest pain. The patient has been having "pressure" in the center of her chest for the past 3 days occuring later in the evening after dinner while she is doing no activity. This has been associated with left arm pain at times, but denies this occurring with activity, or being associated with nausea/vomiting, sweats, or difficulty breathing. The patient does endorse she did start checking her blood pressure with these episodes and noted that yesterday her BP was elevated to the 180/90s and then she would wait and check it again and would be to the 160/80 range. She is on Losartan 50mg Monotherapy and her BP is normally in the 120-140 range per chart review. The patient previously endorses being on cholesterol medication but has been stopped. The patient is an active 76 YOF that walks daily and makes it a point to always get her 7000 steps a day and walks nightly. She does not do any other cardiovascular work. She has not had the above symptoms with any activity or while walking even over the past 3 days. She is able to go up and down steps without any dyspnea as well as carrying groceries and laundry. Ptatient initial Troponin I was negative as well as repeat at 3 hour post initial draw. Her ECG is without dynamic changes. Patient has not had stress test that she can recall. Her last ECHO was in 2019 with EF 70-75% with normal LV and no valve abnormalities. Patient will be observed overnight to trend Troponin I, NPO aft er midnight and stress ECHO in the morning. Patient is hypertensive with her stay in the EMD 160-200/80-100s. She appears anxious and also endorses that she may have been worrying over the past week as her grand kids were in a car accident but are OK. She is anxious about staying overnight as well as plans for tomorrow and "what if she doesn't pass her tests". Principal Diagnosis unstable angina DEVEN x2 in LAD right wrist contusion Discharge Exam The patient appeared well Vital signs as documented. Lungs are clear to auscultation and appear unlabored Cardiac exam, Rhythm is regular.. No murmurs, rubs or gallops. Abdominal exam reveals normal bowel sounds, soft non tender, no masses Extremities are nonedematous and both pedal pulses are normal. Neurologic exam is alert and oriented, no focal loss of strength or sensation Skin is with bruises on the right wrist good distal pulses Psychologically is without concerns for anxiety or depression. Discharge Data Allergies Allergy/AdvReac Type Severity Reaction Status Date / Time No Known Allergies Allergy Verified 09/08/21 14:40 Consultations 09/08/21 16:13 ED Decision to Admit Stat 09/08/21 19:49 Consult Cardiology Routine 09/09/21 15:06 Consult Cardiac Rehabilitation Routine Procedures Performed Operation Date: 09/09/21 13:00 Actual Procedures p Drug Eluting Stent SGl Vessel - Inocencio Valdez MD s Cath, Left with Cors and Vent - Inocencio Valdez MD s IVUS Coronary Single Vessel - Inocencio Valdez MD s Cineradiography w/Routine Exam - Inocencio Valdez MD Ordered Studies 09/09/21 13:26 CL Cath Imgs for PACS use only Urgent 09/09/21 14:57 CL IVUS Coronary Single Vessel Routine Hospital Course (1) Chest pain: High risk stress test is seen, and left heart cath on 09/09/2021 Severe single vessel coronary artery disease-75% proximal LAD, 90% earlymid LAD Successful PCI of proximal and mid LAD with 2 nonoverlapping drug-eluting stents (3.5 x 12, 3.0 x 18 Xience; postdilated with 4.0 NC). Loaded with clopidogrel 600 mg in Digital Marketing Manager Continue dual-antiplatelet therapy for at least 6 months Continue statin, and ASCVD risk factor modification Consult cardiac Rehab be arranged as an outpatient with Dr. Valdez (2) HTN (hypertension): - Losartan 50mg at home-we will have on metoprolol 25 twice daily (3) Hyperlipidemia: High Intensity statin to reduce ASCVD risk (4) Sjogren's disease: Has not been on any immunotherapy- follows with rheumatology BREANNA positive 10.20 and 3.20 SSB/LA positive 10.20 and 3.20 (5) Multiple pulmonary nodules determined by computed tomography of lung: Follows with Pulmonary- stable with no increase since 2019- last seen 02/22 (6) Bronchiectasis without complication: As above- PFTs done 08/22- normal without bronchodilator response mild DLCO reduction- but interpreted as corrected. Total Time Total Time Spent Total Time Spent (In Minutes): It required greater than 30 minutes to prepare this patient for discharge Discharge Plan Discharge Items Patient Disposition: Home - Self-Care Reason For Visit: CHEST PAIN Discharge Diagnosis: unstable angina, stent to left anerior descending coronary artery Activity: Per Instructions section Activity Comment: no intentional activity until released by cardiology Non-emergency contact: Ct Technician Call non-emergency contact if: your symptoms worsen Follow-up/Referrals: Elvis Garcia MD [Primary Care Provider] - (Follow up appointment scheduled with Teresa Bellamy PA-C.) Teresa Bellamy PA-C [Physician Prepress Proofer] - 09/16/21 11:00 am (Please follow up with Teresa Bellamy PA-C on Sunday09/16/21 at 11:00 am. Please arrive to the office at 10:45 am for your appointment. If you are unable to keep this appointment, please call the office to reschedule at [phone].) Diet: Heart Healthy Addtl Attending Provider Instructions: ACTIVITY RECOMMENDATIONS: Excess manipulation of the wrist should be avoided for the next 24-48 hours. * No lifting over 2 pounds (approximately a 1/2 gallon of milk) with the utilized arm for 24 hours. * No strenuous activity such as bowling or tennis for 3 days. * Keep the site of the procedure covered with a bandage for 24 hours. *You may shower the day after the procedure. Do not take a tub bath or submerge the puncture site in water for the next 3 days. *Do not operate any motorized equipment for 3 days. SPECIAL CARE INSTRUCTIONS: The site may be slightly bruised and sore following your procedure. Should any of the following occur, contact the Dr. who performed your procedure. 1. Redness/inflammation, swelling, chills, or fever, or colored drainage at procedure site within 3-7 days after your procedure. 2. Coldness, discoloration, ongoing numbness, severe pain, or swelling. Expect mild tingling of hand and tenderness at the puncture site for up to three days. If this persists beyond three days, or other symptoms develop, notify the DrKevin who performed y our procedure. BLEEDING: If the procedure site on your wrist begins to bleed, do not panic 1. Place 1 or 2 fingers firmly just slightly above the insertion site to stop the bleeding. You may be able to feel your pulse as you hold pressure. 2. Lift your finger after 5 minutes to see if the bleeding has stopped. 3. Once the bleeding has stopped, gently wipe the wrist area clean with a bandage. * If the bleeding from your wrist does not stop after 10 minutes, or if there is a large amount of bleeding or spurting, call 911 (do not drive yourself to the hospital). SKIN IRRITATION: * You may experience some redness and/or swelling in the area where radiation was administered. If any skin irritation occurs, please contact your family physician. FOLLOW UP VISIT: Keep any scheduled doctor appointments. Pending Studies at Discharge: No Stand-Alone Forms: My [facility], Smoking Cessation Medications and DC Order Prescriptions: New atorvastatin 40 mg Tablet 40 mg PO QAM Qty: 30 RF: 5 clopidogrel 75 mg Tablet 75 mg PO QAM Qty: 30 RF: 5 aspirin 81 mg Tablet,Delayed Release (Dr/Ec) 81 mg PO QAM Qty: 90 RF: 3 metoprolol tartrate 25 mg Tablet 25 mg PO BID Qty: 60 RF: 3 Continued Caltrate + D3 Plus Minerals 300 mg-800 unit -25 mg-0.5 mg tablet 1 tab PO DAILY RF: 0 elderberry fruit 200 mg capsule 200 mg PO DAILY RF: 0 cyanocobalamin (vitamin B-12) 500 mcg Tablet 500 mcg PO QAM RF: 0 cholecalciferol (vitamin D3) 2,000 unit Tablet 2,000 unit PO QAM RF: 0 losartan 50 mg tablet 50 mg PO QAM RF: 0 Probiotic For Women 1 cap PO DAILY RF: 0 Discharge Orders: Discharge Order (Routine); Ordered 09/10/21 Ordered By: See Sargent Admission Data Admit Date/Time: 09/08/21 16:56 Attending Provider: See Sargent Admit Provider: Maico Fam Primary Care Provider: Elvis Garcia Other Providers: Maico Fam ; Christiano Rosario Other Interventions: Discharge Summary Assessment (RN) Last Done: 09/10/21 12:43 Coding Level of Care Code D/C DAY MANAGEMENT >30 MINS Diagnoses Chest pain R07.9 Chest pain type: unspecified HTN (hypertension) I10 Hypertension type: unspecified Hyperlipidemia E78.5 Hyperlipidemia type: unspecified Sjogren's disease M35.00 Multiple pulmonary nodules determined by computed tomography of lung R91.8 Bronchiectasis without complication J47.9
--- NOTE | 2021-09-11 10:35 | Electrocardiogram Report ---
Test Reason : Blood Pressure : / mmHG Vent. Rate : 058 BPM Atrial Rate : 058 BPM P-R Int : 170 ms QRS Dur : 090 ms QT Int : 502 ms P-R-T Axes : 070 065 063 degrees QTc Int : 492 ms Sinus bradycardia T wave abnormality, consider anterior ischemia Prolonged QT Abnormal ECG When compared with ECG of 09-SEP-2021 06:28, T wave inversion now evident in Anterior leads QT has lengthened Confirmed by Frank Cheng ([id number]) on 09/11/2021 10:35:04 AM Referred By: REFERRED SELF Confirmed By:Frank Cheng
== END 2021-09-10 13:22 | disposition home or self-care (01) ==
LOC: 2N 13:27 → ED 13:27 → SUATTDRO 16:56 → 2N 19:21 → 2S 09-09 16:40